=== PATIENT | female | born 1940 | race Caucasian/White ===

== ENCOUNTER 2017-02-15 23:41 | Emergency (ER) | payer MEDICARE, BC ==
[2017-02-15 23:54] VITALS: BP 205/72
--- NOTE | 2017-02-16 00:15 | EDM.PDOC ---
ED HISTORY OF PRESENT ILLNESS - General Chief Complaint: Chest Pain Stated Complaint: CHEST PAIN Time Seen by Provider: 02/16/17 00:05 - History of Present Illness INITIAL COMMENTS - FREE TEXT/NARRATIVE: 76-year-old female presents emergency room with chest pain. The patient has been having on-and-off chest pain for the last week or so it was worse this morning and again this evening. When she has these episodes it is brief only last for a few seconds and then vanishes it can be brought on by deep breathing. Patient cannot recall any position changes they tend to make it worse. However, patient states that when she's walking she's more likely to have these twinges of pain Patient has no history of coronary artery disease her last stress test was several years ago reported as normal. Patient has not have any pain at this time. She denies any problems with heartburn or reflux. No breathing difficulties or shortness of breath. Patient is a diabetic is treated for hypertension hyperlipidemia and takes a baby aspirin daily. - Related Data Allergies/ADRs: Allergies Allergy/AdvReac Type Severity Reaction Status Date / Time atorvastatin calcium Allergy Nausea Verified 02/15/17 23:50 [From Lipitor] cephalexin monohydrate Allergy Rash Verified 02/15/17 23:50 [From Keflex] erythromycin base Allergy Rash Verified 02/15/17 23:50 [Erythromycin Base] nitrofurantoin Allergy Rash Verified 02/15/17 23:50 [From Furadantin] oxytetracycline Allergy Rash Verified 02/15/17 23:50 [From Terramycin] oxytetracycline HCl Allergy Rash Verified 02/15/17 23:50 [From Terramycin] Penicillins Allergy Rash Verified 02/15/17 23:50 valdecoxib [From Bextra] Allergy Rash Verified 02/15/17 23:50 tricofuron supp Allergy Rash Uncoded 02/15/17 23:50 Home Meds: Home Meds Aspirin [Adult Low Dose Aspirin EC] 81 mg PO DAILY 03/11/14 [History] Co Q 10. 1 tab PO DAILY 03/11/14 [History] Hydrochlorothiazide 25 mg PO DAILY 03/11/14 [History] Levothyroxine Sodium [Synthroid] 125 mcg PO SUTUWETHFRSA 03/11/14 [History] Lisinopril 15 mg PO DAILY 03/11/14 [History] Lutein/Minerals/Vit A,C & E [Ocuvite] 1 tab PO DAILY 03/11/14 [History] Simvastatin [Zocor] 20 mg PO DAILY 03/11/14 [History] glipiZIDE [Glipizide Xl] 10 mg PO DAILY 03/11/14 [History] Levothyroxine [Levothroid] 137 mcg PO MO@0600 02/15/17 [History] Meloxicam 15 mg PO DAILY 02/15/17 [History] Past Medical History HEENT History: Reports: Epistaxis, Impaired vision Other HEENT History: Wears glasses Cardiovascular History: Reports: High cholesterol, Hypertension Respiratory History: Reports: Sleep apnea Other Respiratory History: CPAP at [facility] [employer]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 History: Reports: Neurological History: Reports: Concussion Endocrine/Metabolic History: Reports: Diabetes, type II, Hypothyroidism Dermatologic History: Reports: Melanoma - Past Surgical History HEENT Surgical History: Reports: Cataract surgery GI Surgical History: Reports: Appendectomy, Cholecystectomy, Hernia repair/other Female Surgical History: Reports: Hysterectomy, Salpingo-oophorectomy Social & Family History - Tobacco Use Smoking Status *Q: Never Smoker Second Hand Smoke Exposure: No - Alcohol Use Days Per Week of Alcohol Use: 0 - Recreational Drug Use Recreational Drug Use: No ED ROS GENERAL - Review of Systems Review Of Systems: See Below Constitutional: Reports: no symptoms HEENT: Reports: No symptoms Respiratory: Reports: No Symptoms Cardiovascular: Reports: Chest pain. Denies: Dyspnea on exertion, Palpitations GI/Abdominal: Reports: No symptoms : Reports: no symptoms Neurological: Reports: No Symptoms ED EXAM, GENERAL - Physical Exam Exam: See Below Exam Limited By: No limitations General Appearance: alert, no apparent distress Head: atraumatic, normocephalic Neck: normal inspection, supple, non-tender, full range of motion. No: lymphadenopathy (R) Respiratory/Chest: no respiratory distress, lungs clear, normal breath sounds, other (Patient of the sternum causes some discomfort she is unsure if this is the type of pain that brought her in.) Cardiovascular: regular rate, rhythm, no edema, no murmur GI/Abdominal: normal bowel sounds, soft, non tender, no organomegaly, no distention, no abnormal bruit, no mass Back Exam: normal inspection. No: CVA tenderness (L), CVA tenderness (R) Neurological: alert, oriented, normal cognition Psychiatric: normal affect, normal mood EKG INTERPRETATION EKG Date: 02/15/17 [place]: normal P-wave: present QRS: normal ST-T: other (Nonspecific nondiagnostic ST changes) QT: normal Comparison: no change EKG Interpretation Comments: Borderline EKG nondiagnostic Course - Vital Signs Last Recorded V/S: Last Vital Signs Temp 36.5 C 02/15/17 23:52 Pulse 76 02/15/17 23:52 Resp 18 02/15/17 23:52 BP 205/72 H 02/15/17 23:52 Pulse Ox 98 02/15/17 23:52 - Orders/Labs/Meds Orders: Active Orders 24 hr Category Date Time Status Chest 1V Frontal [CR] Stat Exams 02/16/17 00:21 Taken Labs: Laboratory Tests 02/15/17 02/15/17 02/15/17 Range/Units 23:59 23:59 23:59 WBC 8.27 (3.98-10.04) K/mm3 RBC 3.89 L (3.98-5.22) M/mm3 Hgb 11.2 (11.2-15.7) gm/L Hct 33.9 L (34.1-44.9) % MCV 87.1 (79.4-94.8) fl MCH 28.8 (25.6-32.2) pg MCHC 33.0 (32.2-35.5) g/dl RDW Std Deviation 41.3 (36.4-46.3) fL Plt Count 354 (182-369) K/mm3 MPV 9.3 L (9.4-12.3) fl Neutrophils % (Manual) 54 (40-60) % Band Neutrophils % 0 (0-10) % Lymphocytes % (Manual) 40 (20-40) % Atypical Lymphs % 0 % Monocytes % (Manual) 3 (2-10) % Eosinophils % (Manual) 1 (0.7-5.8) % Basophils % (Manual) 2 H (0.1-1.2) Platelet Estimate Adequate Plt Morphology Comment Normal RBC Morph Comment Normal PT 10.0 (8.0-13.0) SECONDS INR 0.92 APTT 28 (22-36) SECONDS Sodium 137 (136-145) mEq/L Potassium 4.0 (3.5-5.1) mEq/L Chloride 104 (98-107) mEq/L Carbon Dioxide 25 (21-32) mEq/L Anion Gap 12.0 (5-15) BUN 27 H (7-18) mg/dL Creatinine 1.2 H (0.55-1.02) mg/dL Est Cr Clr Drug Dosing 31.96 mL/min Estimated GFR (MDRD) 43 (>60) mL/min BUN/Creatinine Ratio 22.5 H (14-18) Glucose 287 H (83-115) mg/dL Calcium 9.0 (8.5-10.1) mg/dL Total Bilirubin 0.3 (0.2-1.0) mg/dL AST 36 (15-37) U/L ALT 64 H (14-59) U/L Alkaline Phosphatase 176 H (46-116) U/L Troponin I < 0.017 (0.00-0.056) ng/mL Total Protein 6.9 (6.4-8.2) g/dl Albumin 3.4 (3.4-5.0) g/dl Globulin 3.5 gm/dL Albumin/Globulin Ratio 1.0 (1-2) Meds: Medications Discontinued Medications Generic Name Dose Route Start Last Admin Trade Name Freq PRN Reason Stop Dose Admin Aspirin 324 mg 02/16/17 00:22 02/16/17 00:31 Aspirin PO 02/16/17 00:23 324 mg ONETIME ONE Administration - Re-Assessments/Exams Free Text/Narrative Re-Assessment/Exam: 02/16/17 00:41 Patient evaluated for what sounds like atypical chest pain. Old records reviewed she had a stress test done 3 years ago the stress test was normal the Cardiolite portion was normal. 02/16/17 01:53 She has done well in the emergency room laboratory evaluation is nondiagnostic her troponin is negative of note is she has a mild anemia with a hemoglobin of 11.2 hematocrit 33.9 and she appears somewhat prerenal with BUN of 27 creatinine 1.2 ALT is minimally elevated at 64, alkaline phosphatase elevated at 176 chest x-ray shows a borderline cardiomegaly no acute cardiopulmonary changes Discussed the findings in the lab abnormalities with the patient recommended giving up caffeinated beverages perhaps increasing her fluid intake take might help with her renal function the patient was recently started on meloxicam she is not sure if this is actually helping her. Stopping this could help especially were doesn't seem to be helping she has been on for a couple months with no demonstratable benefit. As far as her chest pain goes this is atypical chest pain. Is aggravated by deep breathing. Blood the patient followup with her regular physician to discuss the lab abnormalities and the possible need for a repeat stress Cardiolite. Departure - Departure Time of Disposition: 01:57 Disposition: Home, Self-Care 01 Clinical Impression: Atypical chest pain Forms: ED Department Discharge Additional Instructions: Return to the emergency room with any questions or problems. Followup with your regular physician this next week discuss lab abnormalities and the possible need for a heart stress test. - My Orders Last 24 Hours: My Active Orders 02/16/17 00:21 Chest 1V Frontal [CR] Stat - Assessment/Plan Last 24 Hours: My Active Orders 02/16/17 00:21 Chest 1V Frontal [CR] Stat
[2017-02-16] MEDS ORDERED: Aspirin 81 MG Tab.Chew PO ONE (00:22)
--- NOTE | 2017-02-17 09:26 | CR ---
Chest: Portable view of the chest was obtained. Comparison: Previous chest x-ray of 03/11/14. Heart size and mediastinum are normal. Lungs are clear. Minimal scoliosis is noted within the spine. Impression: 1. Nothing acute is seen on portable chest x-ray. Diagnostic code #1
== END 2017-02-16 02:10 | disposition home or self-care (01) ==
LOC: JD.ED 23:41
DX: R07.89 Other chest pain (principal); E78.00 Pure hypercholesterolemia, unspecified; I10 Essential (primary) hypertension; E11.9 Type 2 diabetes mellitus without complications; E03.9 Hypothyroidism, unspecified; Z88.8 Allergy status to other drugs, medicaments and biological substances; Z88.0 Allergy status to penicillin; Z79.82 Long term (current) use of aspirin; Z79.899 Other long term (current) drug therapy; Z90.710 Acquired absence of both cervix and uterus
CPT/HCPCS: 36415; 71010; 80053; 84484; 85025; 85610; 85730; 93005; 99285; A9270

== ENCOUNTER 2018-01-13 10:34 | Inpatient (IN) | payer MEDICARE, BC ==
[~2018-01-13 10:34] MED LIST: Bisacodyl 5 MG Tab PO PRN; Lactated Ringers 1,000 ML IV SCH; Lidocaine 1%/Sod Bicarbonate in NS 8.4% 1 ML Syringe IDERM PRN; Magnesium Hydroxide 400 MG/5 ML Susp 30 ML Cup PO PRN; Morphine 2 MG/ML Syringe IVPUSH PRN; Naloxone 0.4 MG/ML SDV IVPUSH PRN; Ondansetron 4 MG/2 ML SDV IVPUSH PRN; Sennosides 8.6 MG Tab PO PRN; Sodium Chloride 0.9% 10 ML Syringe FLUSH PRN
--- NOTE | 2018-01-13 11:22 | PCM.PREANE ---
Preanesthetic Assessment - Anesthesia/Transfusion/Family Hx Anesthesia History: Prior Anesthesia Without Reaction Family History of Anesthesia Reaction: No Transfusion History: No Prior Transfusion(s) - Review of Systems General: No Symptoms Pulmonary: No Symptoms Cardiovascular: Dyspnea on Exertion Gastrointestinal: No Symptoms Neurological: Numbness (toes) Other: Reports: Diabetes (gluco check this am 124 @0630), Thyroid Problems ( hypothyroid) - Physical Assessment NPO Status Date: 01/12/18 NPO Status Time: 00:00 Pulse: 65 O2 Sat by Pulse Oximetry: 98 Respiratory Rate: 16 Blood Pressure: 155/64 Temperature: 36.4 C Height: 1.6 m Weight: 81.193 kg ASA Class: 3 Mental Status: Alert & Oriented x3 Airway Class: Mallampati = 2 Dentition: Reports: Partial, [place](s) Thyro-Mental Finger Breadths: 3 Mouth Opening Finger Breadths: 2 ROM/Head Extension: Full Lungs: Clear to Auscultation, Normal Respiratory Effort Cardiovascular: Regular Rate, Regular Rhythm, No Murmurs - Lab Values: Laboratory Last Values MRSA (PCR) Negative 12/24/17 11:48 - Imaging/EKG Impressions: on chart SR 62 - Allergies Allergies/Adverse Reactions: Allergies Allergy/AdvReac Type Severity Reaction Status Date / Time adhesive Allergy Rash Verified 01/10/18 14:55 atorvastatin calcium Allergy Body Aches Verified 01/10/18 14:55 [From Lipitor] cephalexin monohydrate Allergy Rash Verified 02/15/17 23:50 [From Keflex] erythromycin base Allergy Rash Verified 02/15/17 23:50 [Erythromycin Base] furazolidone Allergy Rash Verified 01/10/18 14:55 nitrofurantoin Allergy Rash Verified 02/15/17 23:50 [From Furadantin] oxytetracycline Allergy Rash Verified 02/15/17 23:50 [From Terramycin] oxytetracycline HCl Allergy Rash Verified 02/15/17 23:50 [From Terramycin] Penicillins Allergy Rash Verified 02/15/17 23:50 valdecoxib [From Bextra] Allergy Rash Verified 02/15/17 23:50 tricofuron supp Allergy Rash Uncoded 02/15/17 23:50 - Blood Blood Available: Yes Product(s) Available: PRBC - Anesthesia Plan Pre-Op Medication Ordered: None - Acknowledgements Anesthesia Type Planned: Spinal Pt an Appropriate Candidate for the Planned Anesthesia: Yes Alternatives and Risks of Anesthesia Discussed w Pt/Guardian: Yes Pt/Guardian Understands and Agrees with Anesthesia Plan: Yes PreAnesthesia Questionnaire HEENT History: Reports: Impaired Vision Other HEENT History: Wears glasses Cardiovascular History: Reports: CAD, High Cholesterol, Hypertension, Other ( See Below) Other Cardiovascular History: Mitral and aortic valve insufficiency, edema Respiratory History: Reports: Sleep Apnea Other Respiratory History: CPAP at [facility] Gastrointestinal History: Reports: Colon Polyp, Diverticulosis, Gastritis, GERD Genitourinary History: Reports: None [employer]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: Musculoskeletal History: Reports: Osteoarthritis, Other (See Below) Other Musculoskeletal History: Right hip pain, DJD, back ache, right hip trochanteric bursitis, right patella chondromalacia Neurological History: Reports: None Psychiatric History: Reports: None Endocrine/Metabolic History: Reports: Diabetes, Type II, Hypothyroidism Hematologic History: Reports: None Immunologic History: Reports: None Oncologic (Cancer) History: Reports: Basal Cell Carcinoma Dermatologic History: Reports: Other (See Below) Other Dermatologic History: Actinic keratosis - Infectious Disease History Infectious Disease History: Reports: None - Past Surgical History HEENT Surgical History: Reports: Cataract Surgery Cardiovascular Surgical History: Reports: None Respiratory Surgical History: Reports: None GI Surgical History: Reports: Appendectomy, Cholecystectomy, EGD, Hernia, Inguinal, Other (See Below) Other GI Surgeries/Procedures: hemorrhoid surgery Female Surgical History: Reports: Cystoscopy, Other (See Below) Other Female Surgeries/Procedures: bladder repair Endocrine Surgical History: Reports: None Neurological Surgical History: Reports: None Oncologic Surgical History: Reports: None Dermatological Surgical History: Reports: None - SUBSTANCE USE Smoking Status *Q: Never Smoker Tobacco Use Within Last Twelve Months: No Second Hand Smoke Exposure: No Days Per Week of Alcohol Use: 0 Number of Drinks Per Day: 0 Total Drinks Per Week: 0 Recreational Drug Use History: No - HOME MEDS Home Medications: Home Meds Aspirin [Adult Low Dose Aspirin EC] 81 mg PO DAILY 03/11/14 [History] Co Q 10. 1 tab PO DAILY 03/11/14 [History] Hydrochlorothiazide 25 mg PO DAILY 03/11/14 [History] Levothyroxine Sodium [Synthroid] 125 mcg PO SUTUWETHFRSA 04/24/14 [History] Lisinopril 15 mg PO DAILY 03/11/14 [History] Lutein/Minerals/Vit A,C & E [Ocuvite] 1 tab PO DAILY 03/11/14 [History] Simvastatin [Zocor] 20 mg PO DAILY 03/11/14 [History] glipiZIDE [Glipizide Xl] 10 mg PO DAILY 03/11/14 [History] Levothyroxine [Levothroid] 137 mcg PO MO@0600 02/15/17 [History] Meloxicam 15 mg PO DAILY 02/15/17 [History] - CURRENT (IN HOUSE) MEDS Current Meds: Current Medications Aspirin (Ecotrin) 325 mg PO BID [facility] Bisacodyl (Dulcolax) 5 mg PO DAILY PRN PRN Reason: Constipation Morphine Sulfate 8 mg/Epinephrine HCl 0.3 mg/Ketorolac Tromethamine 30 mg/ Sodium Chloride 27.9 ml 0 mg .XX ONETIME ONE Stop: 01/13/18 12:31 Docusate Sodium (Colace) 100 mg PO BID [facility] Famotidine (Pepcid) 20 mg PO Q12H [facility] Lactated Ringer's (Ringers, Lactated) 1,000 mls @ 125 mls/hr IV ASDIRECTED [facility] Stop: 01/13/18 23:00 Clindamycin Phosphate 900 mg/ (Sodium Chloride) 106 mls @ 100 mls/hr IV Q6H [facility] Stop: 01/14/18 07:16 Lidocaine/Sodium Bicarbonate (Buffered Lidocaine 1% In Ns 8.4%) 0.25 ml IDERM ONETIME PRN PRN Reason: Prior to IV Start Stop: 01/13/18 20:00 Magnesium Hydroxide (Milk Of Magnesia) 30 ml PO BID PRN PRN Reason: Constipation Morphine Sulfate (Morphine) 2 mg IVPUSH Q2H PRN PRN Reason: Breakthrough Pain Naloxone HCl (Narcan) 0.1 mg IVPUSH Q5M PRN PRN Reason: Oversedation Ondansetron HCl (Zofran) 4 mg IVPUSH Q6H PRN PRN Reason: Nausea/Vomiting Oxycodone/Acetaminophen (Percocet 325-5 Mg) 1 - 2 tab PO Q4H PRN PRN Reason: Pain Rivaroxaban (Xarelto) 10 mg PO DAILY [facility] Senna (Senna) 8.6 mg PO BID PRN PRN Reason: Constipation Sodium Chloride (Saline Flush) 10 ml FLUSH ASDIRECTED PRN PRN Reason: Keep Vein Open
[2018-01-13] MEDS ORDERED: Morphine PF 1 MG/ML Amp ONE (11:27)
[2018-01-13] MEDS ORDERED: Lidocaine 1% 4 ML ONE (11:41)
[2018-01-13] MEDS ORDERED: Ondansetron 4 MG/2 ML SDV ONE (11:41)
[2018-01-13] MEDS ORDERED: fentaNYL 100 MCG/2 ML SDV ONE (11:41)
[2018-01-13] MEDS ORDERED: Propofol 200 MG/20 ML SDV ONE ×3 (11:41→13:07)
[2018-01-13] MEDS ORDERED: Clindamycin Phosphate 900 MG in Sodium Chloride 0.9% 100 ML IV ONE (12:00)
[2018-01-13] MEDS: Bupivacaine 0.25% 30 ML SDV ONE ×2 (12:45→13:24)
[2018-01-13] MEDS: Clindamycin Phosphate 900 MG/6 ML AdvVial ONE ×2 (12:45→13:20)
[2018-01-13] MEDS: Iodine/Sodium Iodide 2% Tincture 30 ML Bottle ONE ×2 (12:46→13:15)
[2018-01-13] MEDS: Vancomycin 1 GM SDV ONE ×2 (12:47→13:25)
[2018-01-13] MEDS: Morphine 8 MG, EPINEPHrine 0.3 MG, Ketorolac 30 MG, Sodium Chloride 0.9% 27.9 ML ONE ×8 (12:47→13:23)
[2018-01-13] MEDS ORDERED: Ketorolac 30 MG/ML SDV ONE (13:57)
[2018-01-13] MEDS ORDERED: fentaNYL 100 MCG/2 ML SDV IVPUSH PRN (14:01)
[2018-01-13] MEDS ORDERED: diphenhydrAMINE 50 MG/ML SDV IVPUSH PRN (14:01)
--- NOTE | 2018-01-13 14:03 | PCM.POSTAN ---
POST ANESTHESIA ASSESSMENT - MENTAL STATUS Mental Status: Alert, Oriented - VITAL SIGNS Pulse Rate: 82 SaO2: 94 Resp Rate: 15 Blood Pressure: 142/62 Temperature: 36.7 C - RESPIRATORY Respiratory Status: Respiratory Rate WNL, Airway Patent, O2 Saturation Stable - CARDIOVASCULAR CV Status: Pulse Rate WNL, Blood Pressure Stable - GASTROINTESTINAL GI Status: No Symptoms - PAIN Pain Score: 0 - POST OP HYDRATION Hydration Status: Adequate & Stable - OBSERVATIONS Free Text/Narrative:: no anesthesia complications noted
--- NOTE | 2018-01-13 14:48 | CR ---
Pelvis and right hip: AP view of the pelvis was obtained as well as lateral view of the right hip. Comparison: No prior pelvis or hip exam. Right hip prosthesis is seen. Components are aligned. Small amount of soft tissue air is noted. Mild joint space narrowing is seen within the left hip. Osteophytes are seen within the lower lumbar spine. Bony structures are osteopenic. Nothing acute is seen. Impression: 1. Satisfactory radiographic appearance of recently placed right hip prosthesis. 2. Osteopenia and other degenerative change as noted above. Diagnostic code #2
[2018-01-13] MEDS ORDERED: metFORMIN 500 MG Tab PO SCH (15:15)
[2018-01-13] MEDS: Aspirin 325 MG Tab.EC PO SCH ×2 (16:07→20:56)
[2018-01-13] MEDS: Docusate Sodium 100 MG Cap PO SCH ×2 (16:39→20:56)
[2018-01-13] MEDS: Famotidine 20 MG Tab PO SCH ×2 (17:03→18:18)
[2018-01-13] MEDS ORDERED: 50% Dextrose in Water 50 ML Syringe IVPUSH PRN (17:05)
--- NOTE | 2018-01-13 17:07 | PCM.CONS ---
H&P History of Present Illness - General Date of Service: 01/13/18 Admit Problem/Dx: Admission Diagnosis/Problem Admission Diagnosis/Problem Osteoarthritis of hip Source of Information: Patient, Provider, RN, RN Notes Reviewed, Other ( surgical notes) - History of Present Illness Initial Comments - Free Text/Narative: Samaria Arcos is a 77 yo female patient of Dr. Avery who is post-operative day 0 of right ZHENG. Hospital medicine was consulted for post-operative medical care. At this time she is resting comfortably in bed. Pain is completely absent. She denies any chest pain, shortness of breath, or palpitations. She had some nausea and vomiting right away and had some emesis just prior to my exam however she reports the nausea resolved after vomiting. She carries a history of : Impaired vision, CAD, HLD, HTN, Mitral and aortic valve insufficiency, edema, Sleep apnea with CPAP use at night, diverticulosis, gastritis, GERD, OA, DJD, Type II DM, hypothyroidism. She was never a smoker. She is a full code. Her primary care provider is Dr. Henry at [facility]. Right Hip Pain Score (Numeric/FACES): 0 - Related Data Allergies/Adverse Reactions: Allergies Allergy/AdvReac Type Severity Reaction Status Date / Time adhesive Allergy Rash Verified 01/13/18 11:35 atorvastatin calcium Allergy Body Aches Verified 01/13/18 11:35 [From Lipitor] cephalexin monohydrate Allergy Rash Verified 01/13/18 11:35 [From Keflex] erythromycin base Allergy Rash Verified 01/13/18 11:35 [Erythromycin Base] furazolidone Allergy Rash Verified 01/13/18 11:35 nitrofurantoin Allergy Rash Verified 01/13/18 11:35 [From Furadantin] oxytetracycline Allergy Rash Verified 01/13/18 11:35 [From Terramycin] oxytetracycline HCl Allergy Rash Verified 01/13/18 11:35 [From Terramycin] Penicillins Allergy Rash Verified 01/13/18 11:35 valdecoxib [From Bextra] Allergy Rash Verified 01/13/18 11:35 tricofuron supp Allergy Rash Uncoded 01/13/18 11:35 Home Medications: Home Meds Aspirin [Adult Low Dose Aspirin EC] 81 mg PO DAILY 03/11/14 [History] Co Q 10. 1 tab PO DAILY 03/11/14 [History] Hydrochlorothiazide 25 mg PO DAILY 03/11/14 [History] Levothyroxine Sodium [Synthroid] 112 mcg PO DAILY 03/11/14 [History] Lisinopril 15 mg PO DAILY 03/11/14 [History] Lutein/Minerals/Vit A,C & E [Ocuvite] 1 tab PO DAILY 03/11/14 [History] Simvastatin [Zocor] 20 mg PO DAILY 03/11/14 [History] glipiZIDE [Glipizide Xl] 5 mg PO DAILY 03/11/14 [History] Meloxicam 15 mg PO DAILY 02/15/17 [History] Cholecalciferol (Vitamin D3) [Vitamin D3] 5,000 units PO DAILY 01/13/18 [History ] Isosorbide Mononitrate [Imdur] 30 mg PO DAILY 01/13/18 [History] Lutein/Minerals/Vit A,C & E [Ocuvite] 1 tab PO DAILY 01/13/18 [History] Terbinafine HCl [Lamisil] 250 mg PO DAILY 01/13/18 [History] metFORMIN [Glucophage] 1,000 mg PO DAILY 01/13/18 [History] metFORMIN [Glucophage] 500 mg PO ASDIRECTED 01/13/18 [History] Past Medical History HEENT History: Reports: Impaired Vision Other HEENT History: Wears glasses Cardiovascular History: Reports: CAD, High Cholesterol, Hypertension, Other ( See Below) Other Cardiovascular History: Mitral and aortic valve insufficiency, edema Respiratory History: Reports: Sleep Apnea Other Respiratory History: CPAP at [facility] Gastrointestinal History: Reports: Colon Polyp, Diverticulosis, Gastritis, GERD , Hiatal Hernia Genitourinary History: Reports: None [employer]PRESENTATIVE History: Reports: Musculoskeletal History: Reports: Osteoarthritis, Other (See Below) Other Musculoskeletal History: Right hip pain, DJD, back ache, right hip trochanteric bursitis, right patella chondromalacia Neurological History: Reports: None Psychiatric History: Reports: None Endocrine/Metabolic History: Reports: Diabetes, Type II, Hypothyroidism Hematologic History: Reports: None Immunologic History: Reports: None Oncologic (Cancer) History: Reports: Basal Cell Carcinoma, Other (See Below) Other Oncologic History: skin cancer that was removed Dermatologic History: Reports: Melanoma, Other (See Below) Other Dermatologic History: Actinic keratosis - Infectious Disease History Infectious Disease History: Reports: Chicken Pox, Measles, Mumps - Past Surgical History HEENT Surgical History: Reports: Cataract Surgery Cardiovascular Surgical History: Reports: None Respiratory Surgical History: Reports: None GI Surgical History: Reports: Appendectomy, Cholecystectomy, Colonoscopy, EGD, Hernia, Inguinal, Other (See Below) Other GI Surgeries/Procedures: hemorrhoid surgery Female Surgical History: Reports: Cystoscopy, Other (See Below) Other Female Surgeries/Procedures: bladder repair Endocrine Surgical History: Reports: None Neurological Surgical History: Reports: None Oncologic Surgical History: Reports: None Dermatological Surgical History: Reports: None Social & Family History - Family History Family Medical History: Noncontributory - Tobacco Use Smoking Status *Q: Never Smoker Second Hand Smoke Exposure: No - Caffeine Use Caffeine Use: Reports: Tea - Alcohol Use Days Per Week of Alcohol Use: 0 Number of Drinks Per Day: 0 Total Drinks Per Week: 0 - Recreational Drug Use Recreational Drug Use: No Drug Use in Last 12 Months: No H&P Review of Systems - Review of Systems: Review Of Systems: See Below General: Reports: No Symptoms HEENT: Reports: No Symptoms Pulmonary: Reports: No Symptoms Cardiovascular: Reports: No Symptoms Gastrointestinal: Reports: Nausea, Vomiting. Denies: Abdominal Pain, Constipation, Diarrhea Genitourinary: Reports: No Symptoms Musculoskeletal: Reports: Joint Pain (right hip) Skin: Reports: No Symptoms Psychiatric: Reports: No Symptoms Neurological: Reports: No Symptoms Hematologic/Lymphatic: Reports: No Symptoms Immunologic: Reports: No Symptoms Exam - Exam Exam: See Below - Vital Signs Vital Signs: Last Vital Signs Temp 96.4 F 01/13/18 16:44 Pulse 81 01/13/18 16:44 Resp 18 01/13/18 16:44 BP 132/70 01/13/18 16:44 Pulse Ox 97 01/13/18 16:44 Weight: 179 lb - Exam Quality Assessment: Supplemental Oxygen, Urinary Catheter, DVT Prophylaxis General: Alert, Oriented, Cooperative. No: Mild Distress HEENT: PERRLA, Hearing Intact, Mucosa Moist & [place], Nares Patent, Normal Nasal Septum, Posterior Pharynx Clear, Conjunctiva Clear, EOMI, EACs Clear, TMs Clear Neck: Supple, Trachea Midline. No: JVD Lungs: Clear to Auscultation, Normal Respiratory Effort Cardiovascular: Regular Rate, Regular Rhythm GI/Abdominal Exam: Normal Bowel Sounds, Soft, Non-Tender, No Organomegaly, No Distention, No Abnormal Bruit, No Mass, Pelvis Stable (Female) Exam: Deferred Rectal (Female) Exam: Deferred Back Exam: Normal Inspection, Full Range of Motion Extremities: No Pedal Edema, Normal Capillary Refill, Leg Pain, Limited Range of Motion, Other (SAVANA bandage in place on right leg. Bandage is dry and intact. Cooling pack in place ) Peripheral Pulses: 2+: Radial (L), Radial (R), Posterior Tibial (L), Posterior Tibial (R), Dorsalis Pedis (L), Dorsalis Pedis (R) Skin: Warm, Dry, Intact Neurological: Cranial Nerves Intact (Grossly) Neuro Extensive - Mental Status: Alert, Oriented x3, Normal Mood/Affect, Normal Cognition, Memory Intact Psychiatric: Alert, Normal Affect, Normal Mood - Patient Data Lab Results Last 24 hrs: Laboratory Results - last 24 hr 01/13/18 Range/Units 11:03 Blood Type O NEGATIVE Gel Antibody Screen Negative Consult PN Assessment/Plan POD#: 0 Procedures: Procedures ASSAY OF CK (CPK) (03/11/14) ASSAY OF MAGNESIUM (03/11/14) ASSAY OF TROPONIN QUANT (02/15/17) ASSAY THYROID STIM HORMONE (03/11/14) C-REACTIVE PROTEIN (03/11/14) CARDIOVASCULAR STRESS TEST (03/22/14) CHEST X-RAY 1 VIEW FRONTAL (02/15/17) COMPLETE CBC W/AUTO DIFF WBC (02/15/17) COMPREHEN METABOLIC PANEL (02/15/17) CONTRST X-RAY UPPR GI TRACT (03/30/14) CREATINE MB FRACTION (03/11/14) DRAIN/INJ JOINT/BURSA W/O US (04/30/17) ELECTROCARDIOGRAM TRACING (02/15/17) EMERGENCY DEPT VISIT (02/15/17) GLUCOSE BLOOD TEST (03/11/14) GLYCOSYLATED HEMOGLOBIN TEST (03/11/14) HT MUSCLE IMAGE SPECT MULT (03/22/14) LIPID PANEL (03/11/14) MEASURE BLOOD OXYGEN LEVEL (03/11/14) PROTHROMBIN TIME (02/15/17) ROUTINE VENIPUNCTURE (02/15/17) THER/PROPH/DIAG INJ SC/IM (03/11/14) THROMBOPLASTIN TIME PARTIAL (02/15/17) (1) S/P total hip arthroplasty SNOMED Code(s): 008021390840 Code(s): Z96.649 - PRESENCE OF UNSPECIFIED ARTIFICIAL HIP JOINT Priority: High Current Visit: Yes Qualifiers: Laterality: right Qualified Code(s): Z96.641 - Presence of right artificial hip joint (2) Osteoarthritis SNOMED Code(s): 835983369 Code(s): M19.90 - UNSPECIFIED OSTEOARTHRITIS, UNSPECIFIED SITE Priority: High Current Visit: Yes Qualifiers: Osteoarthritis location: hip Osteoarthritis type: primary Laterality: right Qualified Code(s): M16.11 - Unilateral primary osteoarthritis, right hip (3) CAD (coronary artery disease) SNOMED Code(s): 57014914 Code(s): I25.10 - ATHSCL HEART DISEASE OF [place] CORONARY ARTERY W/O ANG PCTRS Priority: Low Current Visit: No Qualifiers: Coronary Disease-Associated Artery/Lesion type: unspecified vessel or lesion type [place] vs. transplanted heart: unspecified whether [place] or transplanted heart Associated angina: angina presence unspecified Qualified Code(s): I25.10 - Atherosclerotic heart disease of [place] coronary artery without angina pectoris (4) HLD (hyperlipidemia) SNOMED Code(s): 39516999 Code(s): E78.5 - HYPERLIPIDEMIA, UNSPECIFIED Priority: Low Current Visit : No Qualifiers: Hyperlipidemia type: unspecified Qualified Code(s): E78.5 - Hyperlipidemia , unspecified (5) HTN (hypertension) SNOMED Code(s): 75293776 Code(s): I10 - ESSENTIAL (PRIMARY) HYPERTENSION Priority: Low Current Visit: No Qualifiers: Hypertension type: unspecified Qualified Code(s): I10 - Essential (primary ) hypertension (6) Mitral valve insufficiency SNOMED Code(s): 02538505 Code(s): I34.0 - NONRHEUMATIC MITRAL (VALVE) INSUFFICIENCY Priority: Low Current Visit: No Qualifiers: Cardiac valve disease etiology: etiology unspecified Qualified Code(s): I34.0 - Nonrheumatic mitral (valve) insufficiency (7) Aortic valve insufficiency SNOMED Code(s): 27043473 Code(s): I35.1 - NONRHEUMATIC AORTIC (VALVE) INSUFFICIENCY Priority: Low Current Visit: No Qualifiers: Cardiac valve disease etiology: etiology unspecified Qualified Code(s): I35.1 - Nonrheumatic aortic (valve) insufficiency (8) Sleep apnea SNOMED Code(s): 72408905 Code(s): G47.30 - SLEEP APNEA, UNSPECIFIED Priority: Low Current Visit: Yes Qualifiers: Sleep apnea type: unspecified type Qualified Code(s): G47.30 - Sleep apnea , unspecified (9) Diverticulosis SNOMED Code(s): 65511238 Code(s): K57.90 - DVRTCLOS OF INTEST, PART UNSP, W/O PERF OR ABSCESS W/O BLEED Priority: Low Current Visit: No Qualifiers: Diverticulosis site: unspecified location Diverticulosis bleeding: diverticulosis without bleeding Qualified Code(s): K57.90 - Diverticulosis of intestine, part unspecified, without perforation or abscess without bleeding (10) GERD (gastroesophageal reflux disease) SNOMED Code(s): 150290361 Code(s): K21.9 - GASTRO-ESOPHAGEAL REFLUX DISEASE WITHOUT ESOPHAGITIS Priority: Low Current Visit: No Qualifiers: Esophagitis presence: esophagitis presence not specified Qualified Code(s) : K21.9 - Gastro-esophageal reflux disease without esophagitis (11) Type II diabetes mellitus SNOMED Code(s): 47698106 Code(s): E11.9 - TYPE 2 DIABETES MELLITUS WITHOUT COMPLICATIONS Priority: Medium Current Visit: Yes Qualifiers: Diabetes mellitus complication status: without complication 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: without 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 use Qualified Code(s): E11.9 - Type 2 diabetes mellitus without complications (12) Hypothyroidism SNOMED Code(s): 68144455 Code(s): E03.9 - HYPOTHYROIDISM, UNSPECIFIED Priority: Low Current Visit : No Qualifiers: Hypothyroidism type: unspecified Qualified Code(s): E03.9 - Hypothyroidism , unspecified Problem List Initiated/Reviewed/Updated: Yes My Orders Last 24 Hours: My Active Orders 01/13/18 17:05 Blood Glucose Check, Bedside [RC] QIDACANDBED Dextrose 50% in Water 50 ml IVPUSH ASDIRECTED PRN 01/13/18 22:00 Insulin Aspart [NovoLOG] See Protocol SUBCUT QIDACANDBED Plan: I/P: Acute: S/P right total ihp arthroplasty - post-operative day 0 -DVT prophylaxis and pain management per primary care team -PT/OT -IS/RT -Monitor oxygen saturation -Titrate oxygen as needed -Vital signs stable -Monitor labs -Pre-operative Hgb was 11.8 -Pre-operative A1C 6.5% -Pre-operative eGFR 53% Osteoarthritis of right hip -Pain management per primary care team Post-operative nausea and vomiting -Comes on suddenly and resolves after emesis temporarily -2 episodes so far -Zofran given, scopolamine patch ordered Chronic (home meds): Impaired vision CAD HLD HTN Mitral valve insufficiency Aortic valve insufficiency Sleep apnea on CPAP Diverticulosis Gastritis GERD Type II DM Hypothyroidism Plan: CM for discharge planning GI prophylaxis Home medications as indicated Other orders as listed above Routine AM labs She is a full code. Her PCP is Dr. Henry at [facility] Thank you for allowing us to participate in the care of this patient!! Requesting Provider: Dr. Avery Date Consult Requested: 01/13/18 Reason for Consult: Post-operative medical managment Patient History Reviewed: Yes Admission H&P Reviewed: Yes Time Spent (in minutes): 25
[2018-01-13] MEDS ORDERED: Scopolamine 1 MG Transdermal Patch TRDERM SCH (17:30)
[2018-01-13] MEDS: Clindamycin Phosphate 900 MG in Sodium Chloride 0.9% 100 ML IV SCH ×2 (17:41→17:56)
[2018-01-13] MEDS ORDERED: Metoclopramide 10 MG/2 ML SDV IVPUSH PRN (19:35)
[2018-01-13] MEDS: Insulin Aspart 100 Units/ML 3 ML Pen SUBCUT SCH (21:08)
[2018-01-14] MEDS: Clindamycin Phosphate 900 MG in Sodium Chloride 0.9% 100 ML IV SCH ×3 (00:47→12:04)
[2018-01-14] MEDS ORDERED: Levothyroxine 112 MCG Tab PO SCH (06:00)
--- NOTE | 2018-01-14 06:24 | PCM.CONSN ---
- General Info Date of Service: 01/14/18 Admission Dx/Problem (Free Text): Admission Diagnosis/Problem Admission Diagnosis/Problem Osteoarthritis of hip Subjective Update: In to see Samaria. She is doing fairly well. She denies any concerns or complaints. Vital signs have been stable. She is resting in bed and states pain is 5/10 but controlled. No concerns from nursing or providers. She has voided. Functional Status: Reports: Pain Controlled, Tolerating Diet, Ambulating, Urinating, Incentive Spirometry. Denies: New Symptoms - Review of Systems General: Reports: No Symptoms HEENT: Reports: No Symptoms Pulmonary: Reports: No Symptoms Cardiovascular: Reports: No Symptoms Gastrointestinal: Reports: No Symptoms Genitourinary: Reports: No Symptoms Musculoskeletal: Reports: Joint Pain Skin: Reports: No Symptoms Neurological: Reports: No Symptoms Psychiatric: Reports: No Symptoms - Patient Data Vitals - Most Recent: Last Vital Signs Temp 97.2 F 01/13/18 20:05 Pulse 72 01/13/18 23:31 Resp 17 01/13/18 23:31 BP 126/50 L 01/13/18 23:31 Pulse Ox 97 01/13/18 23:31 Weight - Most Recent: 179 lb I&O - Last 24 Hours: Intake & Output 01/13/18 01/13/18 01/14/18 14:59 22:59 06:59 Intake Total 100 380 106 Output Total 250 800 Balance -150 -420 106 Lab Results Last 24 Hours: Laboratory Results - last 24 hr 01/13/18 01/13/18 01/14/18 Range/Units 11:03 20:45 06:03 POC Glucose 175 H 171 H (83-110) mg/dL Blood Type O NEGATIVE Gel Antibody Screen Negative Med Orders - Current: Current Medications Aspirin (Ecotrin) 325 mg PO BID [facility] Last Admin: 01/13/18 20:56 Dose: Not Given Aspirin (Halfprin) 81 mg PO DAILY [facility] Bisacodyl (Dulcolax) 5 mg PO DAILY PRN PRN Reason: Constipation Cholecalciferol (Vitamin D3) 5,000 units PO DAILY [facility] Dextrose/Water (Dextrose 50% In Water) 50 ml IVPUSH ASDIRECTED PRN PRN Reason: Hypoglycemia Docusate Sodium (Colace) 100 mg PO BID [facility] Last Admin: 01/13/18 20:56 Dose: Not Given Famotidine (Pepcid) 20 mg PO Q12H [facility] Last Admin: 01/13/18 18:18 Dose: Not Given Glipizide (Glucotrol Xl) 5 mg PO DAILY [facility] Hydrochlorothiazide (Hydrochlorothiazide) 25 mg PO DAILY [facility] Clindamycin Phosphate 900 mg/ (Sodium Chloride) 106 mls @ 100 mls/hr IV Q6H [facility] Stop: 01/14/18 18:46 Last Admin: 01/14/18 00:47 Dose: 100 mls/hr Insulin Aspart (Novolog) 0 unit SUBCUT QIDACANDBED [facility] PRN Reason: Protocol Last Admin: 01/13/18 21:08 Dose: 1 unit Isosorbide Mononitrate (Imdur) 30 mg PO DAILY [facility] Levothyroxine Sodium (Levothyroxine) 112 mcg PO ACBRK [facility] Lisinopril (Prinivil) 15 mg PO DAILY [facility] Magnesium Hydroxide (Milk Of Magnesia) 30 ml PO BID PRN PRN Reason: Constipation Metformin HCl (Glucophage) 1,000 mg PO DAILY [facility] Metoclopramide HCl (Reglan) 10 mg IVPUSH Q4H PRN PRN Reason: Nausea/Vomiting Morphine Sulfate (Morphine) 2 mg IVPUSH Q2H PRN PRN Reason: Breakthrough Pain Naloxone HCl (Narcan) 0.1 mg IVPUSH Q5M PRN PRN Reason: Oversedation Non-Formulary Medication (Co Q 10.) 1 tab PO DAILY [facility] Non-Formulary Medication (Terbinafine Hcl) 250 mg PO DAILY [facility] Ondansetron HCl (Zofran) 4 mg IVPUSH Q6H PRN PRN Reason: Nausea/Vomiting Last Admin: 01/13/18 17:03 Dose: 4 mg Oxycodone/Acetaminophen (Percocet 325-5 Mg) 1 - 2 tab PO Q4H PRN PRN Reason: Pain Rivaroxaban (Xarelto) 10 mg PO DAILY [facility] Scopolamine (Scopolamine) 1 each TRDERM Q72H [facility] Last Admin: 01/13/18 17:56 Dose: 1 each Senna (Senna) 8.6 mg PO BID PRN PRN Reason: Constipation Simvastatin (Zocor) 20 mg PO DAILY [facility] Sodium Chloride (Saline Flush) 10 ml FLUSH ASDIRECTED PRN PRN Reason: Keep Vein Open Discontinued Medications Bupivacaine HCl (Marcaine 0.25%) Confirm Administered Dose 30 ml .ROUTE .STK- MED ONE Stop: 01/13/18 11:20 Last Admin: 01/13/18 13:24 Dose: 30 ml Clindamycin Phosphate (Cleocin) Confirm Administered Dose 900 mg .ROUTE .STK- MED ONE Stop: 01/13/18 11:20 Last Admin: 01/13/18 13:20 Dose: 900 mg Morphine Sulfate 8 mg/Epinephrine HCl 0.3 mg/Ketorolac Tromethamine 30 mg/ Sodium Chloride 27.9 ml 0 mg .XX ONETIME ONE Stop: 01/13/18 12:31 Last Admin: 01/13/18 13:23 Dose: 38.3 mg Diphenhydramine HCl (Benadryl) 25 mg IVPUSH Q6H PRN PRN Reason: Itching Stop: 01/13/18 18:00 Fentanyl (Sublimaze) Confirm Administered Dose 100 mcg .ROUTE .STK-MED ONE Stop: 01/13/18 11:42 Fentanyl (Sublimaze) 50 mcg IVPUSH Q5M PRN PRN Reason: PAIN Stop: 01/13/18 18:00 Lactated Ringer's (Ringers, Lactated) 1,000 mls @ 125 mls/hr IV ASDIRECTED [facility] Stop: 01/13/18 23:00 Last Admin: 01/13/18 11:00 Dose: 125 mls/hr Clindamycin Phosphate 900 mg/ (Sodium Chloride) 106 mls @ 100 mls/hr IV ONETIME ONE Stop: 01/13/18 13:03 Last Admin: 01/13/18 19:31 Dose: Not Given Lidocaine HCl (Xylocaine-Mpf 1%) Confirm Administered Dose 4 mls @ as directed .ROUTE .STK-MED ONE Stop: 01/13/18 11:42 Iodine (Iodine 2% Mild Tincture) Confirm Administered Dose 30 ml .ROUTE .STK- MED ONE Stop: 01/13/18 11:20 Last Admin: 01/13/18 13:15 Dose: 18 ml Ketorolac Tromethamine (Toradol) Confirm Administered Dose 30 mg .ROUTE .STK- MED ONE Stop: 01/13/18 13:58 Lidocaine/Sodium Bicarbonate (Buffered Lidocaine 1% In Ns 8.4%) 0.25 ml IDERM ONETIME PRN PRN Reason: Prior to IV Start Stop: 01/13/18 20:00 Last Admin: 01/13/18 11:00 Dose: 0.25 ml Metformin HCl (Glucophage) 500 mg PO ASDIRECTED [facility] Morphine Sulfate (Duramorph Pf) Confirm Administered Dose 1 mg .ROUTE .STK-MED ONE Stop: 01/13/18 11:28 Ondansetron HCl (Zofran) Confirm Administered Dose 4 mg .ROUTE .STK-MED ONE Stop: 01/13/18 11:42 Propofol (Diprivan 20 Ml) Confirm Administered Dose 200 mg .ROUTE .STK-MED ONE Stop: 01/13/18 11:42 Propofol (Diprivan 20 Ml) Confirm Administered Dose 200 mg .ROUTE .STK-MED ONE Stop: 01/13/18 12:33 Propofol (Diprivan 20 Ml) Confirm Administered Dose 200 mg .ROUTE .STK-MED ONE Stop: 01/13/18 13:08 Tranexamic Acid (Cyklokapron) Confirm Administered Dose 1,000 mg .ROUTE .STK- MED ONE Stop: 01/13/18 11:20 Last Admin: 01/13/18 13:27 Dose: 1,000 mg Vancomycin HCl (Vancomycin) Confirm Administered Dose 1 gm .ROUTE .STK-MED ONE Stop: 01/13/18 11:20 Last Admin: 01/13/18 13:25 Dose: 1 gm - Exam Quality Assessment: DVT Prophylaxis General: Alert, Oriented, Cooperative, No Acute Distress HEENT: Pupils Equal, Pupils Reactive, EOMI, Mucous Membr. Moist/[place] Neck: Supple, Trachea Midline, No JVD Lungs: Clear to Auscultation, Normal Respiratory Effort Cardiovascular: Regular Rate, Regular Rhythm GI/Abdominal Exam: Normal Bowel Sounds, Soft, Non-Tender, No Organomegaly, No Distention, No Abnormal Bruit, No Mass, Pelvis Stable (Female) Exam: Deferred Back Exam: Normal Inspection, Full Range of Motion Extremities: No Pedal Edema, Normal Capillary Refill, Leg Pain, Limited Range of Motion, Other (SAVANA bandage in place on right leg. Cooling pack in place ) Peripheral Pulses: 2+: Radial (L), Radial (R), Dorsalis Pedis (L), Dorsalis Pedis (R) Skin: Warm, Dry, Intact Wound/Incisions: Dressing Dry and Intact, No Drainage Neurological: No New Focal Deficit Psy/Mental Status: Alert, Normal Affect, Normal Mood Consult PN Assessment/Plan POD#: 1 Procedures: Procedures ASSAY OF CK (CPK) (03/11/14) ASSAY OF MAGNESIUM (03/11/14) ASSAY OF TROPONIN QUANT (02/15/17) ASSAY THYROID STIM HORMONE (03/11/14) C-REACTIVE PROTEIN (03/11/14) CARDIOVASCULAR STRESS TEST (03/22/14) CHEST X-RAY 1 VIEW FRONTAL (02/15/17) COMPLETE CBC W/AUTO DIFF WBC (02/15/17) COMPREHEN METABOLIC PANEL (02/15/17) CONTRST X-RAY UPPR GI TRACT (03/30/14) CREATINE MB FRACTION (03/11/14) DRAIN/INJ JOINT/BURSA W/O US (04/30/17) ELECTROCARDIOGRAM TRACING (02/15/17) EMERGENCY DEPT VISIT (02/15/17) GLUCOSE BLOOD TEST (03/11/14) GLYCOSYLATED HEMOGLOBIN TEST (03/11/14) HT MUSCLE IMAGE SPECT MULT (03/22/14) LIPID PANEL (03/11/14) MEASURE BLOOD OXYGEN LEVEL (03/11/14) PROTHROMBIN TIME (02/15/17) ROUTINE VENIPUNCTURE (02/15/17) THER/PROPH/DIAG INJ SC/IM (03/11/14) THROMBOPLASTIN TIME PARTIAL (02/15/17) (1) S/P total hip arthroplasty SNOMED Code(s): 450624654734 Code(s): Z96.649 - PRESENCE OF UNSPECIFIED ARTIFICIAL HIP JOINT Priority: High Current Visit: Yes Qualifiers: Laterality: right Qualified Code(s): Z96.641 - Presence of right artificial hip joint (2) Osteoarthritis SNOMED Code(s): 798868323 Code(s): M19.90 - UNSPECIFIED OSTEOARTHRITIS, UNSPECIFIED SITE Priority: High Current Visit: Yes Qualifiers: Osteoarthritis location: hip Osteoarthritis type: primary Laterality: right Qualified Code(s): M16.11 - Unilateral primary osteoarthritis, right hip (3) CAD (coronary artery disease) SNOMED Code(s): 59492331 Code(s): I25.10 - ATHSCL HEART DISEASE OF [place] CORONARY ARTERY W/O ANG PCTRS Priority: Low Current Visit: No Qualifiers: Coronary Disease-Associated Artery/Lesion type: unspecified vessel or lesion type [place] vs. transplanted heart: unspecified whether [place] or transplanted heart Associated angina: angina presence unspecified Qualified Code(s): I25.10 - Atherosclerotic heart disease of [place] coronary artery without angina pectoris (4) HLD (hyperlipidemia) SNOMED Code(s): 36848426 Code(s): E78.5 - HYPERLIPIDEMIA, UNSPECIFIED Priority: Low Current Visit : No Qualifiers: Hyperlipidemia type: unspecified Qualified Code(s): E78.5 - Hyperlipidemia , unspecified (5) HTN (hypertension) SNOMED Code(s): 19216221 Code(s): I10 - ESSENTIAL (PRIMARY) HYPERTENSION Priority: Low Current Visit: No Qualifiers: Hypertension type: unspecified Qualified Code(s): I10 - Essential (primary ) hypertension (6) Mitral valve insufficiency SNOMED Code(s): 92197793 Code(s): I34.0 - NONRHEUMATIC MITRAL (VALVE) INSUFFICIENCY Priority: Low Current Visit: No Qualifiers: Cardiac valve disease etiology: etiology unspecified Qualified Code(s): I34.0 - Nonrheumatic mitral (valve) insufficiency (7) Aortic valve insufficiency SNOMED Code(s): 73774738 Code(s): I35.1 - NONRHEUMATIC AORTIC (VALVE) INSUFFICIENCY Priority: Low Current Visit: No Qualifiers: Cardiac valve disease etiology: etiology unspecified Qualified Code(s): I35.1 - Nonrheumatic aortic (valve) insufficiency (8) Sleep apnea SNOMED Code(s): 45791945 Code(s): G47.30 - SLEEP APNEA, UNSPECIFIED Priority: Low Current Visit: Yes Qualifiers: Sleep apnea type: unspecified type Qualified Code(s): G47.30 - Sleep apnea , unspecified (9) Diverticulosis SNOMED Code(s): 77678922 Code(s): K57.90 - DVRTCLOS OF INTEST, PART UNSP, W/O PERF OR ABSCESS W/O BLEED Priority: Low Current Visit: No Qualifiers: Diverticulosis site: unspecified location Diverticulosis bleeding: diverticulosis without bleeding Qualified Code(s): K57.90 - Diverticulosis of intestine, part unspecified, without perforation or abscess without bleeding (10) GERD (gastroesophageal reflux disease) SNOMED Code(s): 674378928 Code(s): K21.9 - GASTRO-ESOPHAGEAL REFLUX DISEASE WITHOUT ESOPHAGITIS Priority: Low Current Visit: No Qualifiers: Esophagitis presence: esophagitis presence not specified Qualified Code(s) : K21.9 - Gastro-esophageal reflux disease without esophagitis (11) Type II diabetes mellitus SNOMED Code(s): 87704667 Code(s): E11.9 - TYPE 2 DIABETES MELLITUS WITHOUT COMPLICATIONS Priority: Medium Current Visit: Yes Qualifiers: Diabetes mellitus complication status: without complication Diabetes mellitus longterm insulin use: without longterm use Qualified Code(s): E11.9 - Type 2 diabetes mellitus without complications (12) Hypothyroidism SNOMED Code(s): 44819779 Code(s): E03.9 - HYPOTHYROIDISM, UNSPECIFIED Priority: Low Current Visit : No Qualifiers: Hypothyroidism type: unspecified Qualified Code(s): E03.9 - Hypothyroidism , unspecified Problem List Initiated/Reviewed/Updated: Yes My Orders Last 24 Hours: My Active Orders 01/13/18 17:05 Blood Glucose Check, Bedside [RC] QIDACANDBED Dextrose 50% in Water 50 ml IVPUSH ASDIRECTED PRN 01/13/18 17:19 CPAP Adult [RT BiPAP/CPAP] [RC] ASDIRECTED 01/13/18 17:30 Scopolamine 1 each TRDERM Q72H 01/13/18 22:00 Insulin Aspart [NovoLOG] See Protocol SUBCUT QIDACANDBED Plan: I/P: Acute: S/P right total ihp arthroplasty - post-operative day 1 -DVT prophylaxis and pain management per primary care team -PT/OT -IS/RT -Monitor oxygen saturation -Titrate oxygen as needed -Vital signs stable -Monitor labs -Pre-operative Hgb was 11.8, now 9.7 -Pre-operative A1C 6.5% -Pre-operative eGFR 53%, now 43 Osteoarthritis of right hip -Pain management per primary care team Post-operative nausea and vomiting, resolved -Comes on suddenly and resolves after emesis temporarily -2 episodes so far -Zofran given, scopolamine patch ordered Chronic (home meds): Impaired vision CAD HLD HTN Mitral valve insufficiency Aortic valve insufficiency Sleep apnea on CPAP Diverticulosis Gastritis GERD Type II DM Hypothyroidism Plan: CM for discharge planning GI prophylaxis Home medications as indicated Other orders as listed above Routine AM labs She is a full code. Her PCP is Dr. Henry at [facility] Thank you for allowing us to participate in the care of this patient!!
[2018-01-14] MEDS: Acetaminophen/oxyCODONE 325-5 MG Tab PO PRN ×2 (06:25→12:04)
[2018-01-14] MEDS: Famotidine 20 MG Tab PO SCH (06:26)
--- NOTE | 2018-01-14 07:20 | PCM.SURGPN ---
- General Info Date of Service: 01/14/18 POD#: 1 Functional Status: Reports: Pain Controlled, Tolerating Diet, Ambulating, Incentive Spirometry - Review of Systems Musculoskeletal: Reports: Other (The pt has met inpatient therapy goals.) - Patient Data Vitals - Most Recent: Last Vital Signs Temp 98.1 F 01/14/18 06:08 Pulse 87 01/14/18 06:08 Resp 18 01/14/18 06:08 BP 145/48 H 01/14/18 06:08 Pulse Ox 100 01/14/18 06:08 Weight - Most Recent: 179 lb I&O - Last 24 Hours: Intake & Output 01/13/18 01/14/18 01/14/18 22:59 06:59 14:59 Intake Total 380 306 Output Total 800 950 Balance -420 -644 Lab Results Last 24 Hrs: Laboratory Results - last 24 hr 01/13/18 01/13/18 01/14/18 Range/Units 11:03 20:45 06:03 WBC (3.98-10.04) K/mm3 RBC (3.98-5.22) M/mm3 Hgb (11.2-15.7) gm/L Hct (34.1-44.9) % MCV (79.4-94.8) fl MCH (25.6-32.2) pg MCHC (32.2-35.5) g/dl RDW Std Deviation (36.4-46.3) fL Plt Count (182-369) K/mm3 MPV (9.4-12.3) fl POC Glucose 175 H 171 H (83-110) mg/dL Blood Type O NEGATIVE Gel Antibody Screen Negative 01/14/18 Range/Units 06:30 WBC 8.47 (3.98-10.04) K/mm3 RBC 3.26 L (3.98-5.22) M/mm3 Hgb 9.7 L (11.2-15.7) gm/L Hct 29.9 L (34.1-44.9) % MCV 91.7 (79.4-94.8) fl MCH 29.8 (25.6-32.2) pg MCHC 32.4 (32.2-35.5) g/dl RDW Std Deviation 43.1 (36.4-46.3) fL Plt Count 307 (182-369) K/mm3 MPV 9.0 L (9.4-12.3) fl POC Glucose (83-110) mg/dL Blood Type Gel Antibody Screen Med Orders - Current: Current Medications Aspirin (Halfprin) 81 mg PO DAILY [facility] Bisacodyl (Dulcolax) 5 mg PO DAILY PRN PRN Reason: Constipation Cholecalciferol (Vitamin D3) 5,000 units PO DAILY [facility] Dextrose/Water (Dextrose 50% In Water) 50 ml IVPUSH ASDIRECTED PRN PRN Reason: Hypoglycemia Docusate Sodium (Colace) 100 mg PO BID [facility] Last Admin: 01/13/18 20:56 Dose: Not Given Famotidine (Pepcid) 20 mg PO Q12H [facility] Last Admin: 01/14/18 06:26 Dose: 20 mg Glipizide (Glucotrol Xl) 5 mg PO DAILY [facility] Hydrochlorothiazide (Hydrochlorothiazide) 25 mg PO DAILY [facility] Clindamycin Phosphate 900 mg/ (Sodium Chloride) 106 mls @ 100 mls/hr IV Q6H [facility] Stop: 01/14/18 18:46 Last Admin: 01/14/18 06:25 Dose: 100 mls/hr Insulin Aspart (Novolog) 0 unit SUBCUT QIDACANDBED [facility] PRN Reason: Protocol Last Admin: 01/13/18 21:08 Dose: 1 unit Isosorbide Mononitrate (Imdur) 30 mg PO DAILY [facility] Levothyroxine Sodium (Levothyroxine) 112 mcg PO ACBRK [facility] Last Admin: 01/14/18 06:25 Dose: 112 mcg Lisinopril (Prinivil) 15 mg PO DAILY [facility] Magnesium Hydroxide (Milk Of Magnesia) 30 ml PO BID PRN PRN Reason: Constipation Metformin HCl (Glucophage) 1,000 mg PO DAILY [facility] Metoclopramide HCl (Reglan) 10 mg IVPUSH Q4H PRN PRN Reason: Nausea/Vomiting Morphine Sulfate (Morphine) 2 mg IVPUSH Q2H PRN PRN Reason: Breakthrough Pain Naloxone HCl (Narcan) 0.1 mg IVPUSH Q5M PRN PRN Reason: Oversedation Ondansetron HCl (Zofran) 4 mg IVPUSH Q6H PRN PRN Reason: Nausea/Vomiting Last Admin: 01/13/18 17:03 Dose: 4 mg Oxycodone/Acetaminophen (Percocet 325-5 Mg) 1 - 2 tab PO Q4H PRN PRN Reason: Pain Last Admin: 01/14/18 06:25 Dose: 2 tab Terbinafine Hcl 250 (Mg) 0 each PO DAILY [facility] Rivaroxaban (Xarelto) 10 mg PO DAILY [facility] Scopolamine (Scopolamine) 1 each TRDERM Q72H [facility] Last Admin: 01/13/18 17:56 Dose: 1 each Senna (Senna) 8.6 mg PO BID PRN PRN Reason: Constipation Simvastatin (Zocor) 20 mg PO DAILY [facility] Sodium Chloride (Saline Flush) 10 ml FLUSH ASDIRECTED PRN PRN Reason: Keep Vein Open Discontinued Medications Aspirin (Ecotrin) 325 mg PO BID [facility] Last Admin: 01/13/18 20:56 Dose: Not Given Bupivacaine HCl (Marcaine 0.25%) Confirm Administered Dose 30 ml .ROUTE .STK- MED ONE Stop: 01/13/18 11:20 Last Admin: 01/13/18 13:24 Dose: 30 ml Clindamycin Phosphate (Cleocin) Confirm Administered Dose 900 mg .ROUTE .STK- MED ONE Stop: 01/13/18 11:20 Last Admin: 01/13/18 13:20 Dose: 900 mg Morphine Sulfate 8 mg/Epinephrine HCl 0.3 mg/Ketorolac Tromethamine 30 mg/ Sodium Chloride 27.9 ml 0 mg .XX ONETIME ONE Stop: 01/13/18 12:31 Last Admin: 01/13/18 13:23 Dose: 38.3 mg Diphenhydramine HCl (Benadryl) 25 mg IVPUSH Q6H PRN PRN Reason: Itching Stop: 01/13/18 18:00 Fentanyl (Sublimaze) Confirm Administered Dose 100 mcg .ROUTE .STK-MED ONE Stop: 01/13/18 11:42 Fentanyl (Sublimaze) 50 mcg IVPUSH Q5M PRN PRN Reason: PAIN Stop: 01/13/18 18:00 Lactated Ringer's (Ringers, Lactated) 1,000 mls @ 125 mls/hr IV ASDIRECTED [facility] Stop: 01/13/18 23:00 Last Admin: 01/13/18 11:00 Dose: 125 mls/hr Clindamycin Phosphate 900 mg/ (Sodium Chloride) 106 mls @ 100 mls/hr IV ONETIME ONE Stop: 01/13/18 13:03 Last Admin: 01/13/18 19:31 Dose: Not Given Lidocaine HCl (Xylocaine-Mpf 1%) Confirm Administered Dose 4 mls @ as directed .ROUTE .STK-MED ONE Stop: 01/13/18 11:42 Iodine (Iodine 2% Mild Tincture) Confirm Administered Dose 30 ml .ROUTE .STK- MED ONE Stop: 01/13/18 11:20 Last Admin: 01/13/18 13:15 Dose: 18 ml Ketorolac Tromethamine (Toradol) Confirm Administered Dose 30 mg .ROUTE .STK- MED ONE Stop: 01/13/18 13:58 Lidocaine/Sodium Bicarbonate (Buffered Lidocaine 1% In Ns 8.4%) 0.25 ml IDERM ONETIME PRN PRN Reason: Prior to IV Start Stop: 01/13/18 20:00 Last Admin: 01/13/18 11:00 Dose: 0.25 ml Metformin HCl (Glucophage) 500 mg PO ASDIRECTED [facility] Morphine Sulfate (Morphine) 2 mg IVPUSH Q2H PRN PRN Reason: Breakthrough Pain Morphine Sulfate (Duramorph Pf) Confirm Administered Dose 1 mg .ROUTE .STK-MED ONE Stop: 01/13/18 11:28 Non-Formulary Medication (Co Q 10.) 1 tab PO DAILY [facility] Ondansetron HCl (Zofran) Confirm Administered Dose 4 mg .ROUTE .STK-MED ONE Stop: 01/13/18 11:42 Propofol (Diprivan 20 Ml) Confirm Administered Dose 200 mg .ROUTE .STK-MED ONE Stop: 01/13/18 11:42 Propofol (Diprivan 20 Ml) Confirm Administered Dose 200 mg .ROUTE .STK-MED ONE Stop: 01/13/18 12:33 Propofol (Diprivan 20 Ml) Confirm Administered Dose 200 mg .ROUTE .STK-MED ONE Stop: 01/13/18 13:08 Tranexamic Acid (Cyklokapron) Confirm Administered Dose 1,000 mg .ROUTE .STK- MED ONE Stop: 01/13/18 11:20 Last Admin: 01/13/18 13:27 Dose: 1,000 mg Vancomycin HCl (Vancomycin) Confirm Administered Dose 1 gm .ROUTE .STK-MED ONE Stop: 01/13/18 11:20 Last Admin: 01/13/18 13:25 Dose: 1 gm - Exam Wound/Incisions: Dressing Dry and Intact General: Alert, Cooperative, No Acute Distress Lungs: Normal Respiratory Effort Extremities: Other (Right thigh soft. Damari's negative for RLE.) - Problem List Review Problem List Initiated/Reviewed/Updated: Yes - My Orders Last 24 Hours: Active Orders 24 hr Category Date Time Status Patient Status [ADT] Routine ADT 01/13/18 07:03 Active Ambulate [RC] PER UNIT ROUTINE Care 01/13/18 07:03 Active Antiembolic Devices [RC] BID Care 01/13/18 07:04 Active Blood Glucose Check, Bedside [RC] QIDACANDBED Care 01/13/18 17:05 Active CPAP Adult [RT BiPAP/CPAP] [RC] ASDIRECTED Care 01/13/18 17:19 Active Communication Order [RC] ASDIRECTED Care 01/13/18 14:01 Active Cooling Warming Measures [RC] ASDIRECTED Care 01/13/18 14:00 Inactive May Shower [RC] ASDIRECTED Care 01/13/18 07:03 Active Notify Provider Consults [RC] ASDIRECTED Care 01/13/18 07:07 Active Notify Provider [RC] ASDIRECTED Care 01/13/18 14:01 Active Oxygen Therapy [RC] PRN Care 01/13/18 07:03 Active Pulse Oximetry [RC] CONTINUOUS Care 01/13/18 14:00 Active RT Incentive Spirometry [RC] Q1HWA Care 01/13/18 07:01 Active Up to Chair [RC] ASDIRECTED Care 01/13/18 07:03 Active Vital Signs [RC] Q15M Care 01/13/18 14:00 Inactive Vital Signs [RC] Q4HR Care 01/13/18 07:03 Active Consult to Physician [CONS] Routine Cons 01/13/18 07:03 Active OT Evaluation and Treatment [CONS] Routine Cons 01/13/18 07:01 Active PT Evaluation and Treatment [CONS] Routine Cons 01/13/18 07:01 Active Regular Diet [DIET] Diet 01/13/18 Lunch Active COMPREHENSIVE METABOLIC PN,CMP [CHEM] AM Lab 01/14/18 06:30 Received Acetaminophen/oxyCODONE [Percocet 325-5 MG] Med 01/13/18 07:01 Active 1 - 2 tab PO Q4H PRN Aspirin [Halfprin] Med 01/14/18 09:00 Active 81 mg PO DAILY Bisacodyl [Dulcolax] Med 01/13/18 07:03 Active 5 mg PO DAILY PRN Cholecalciferol (Vitamin D3) [Vitamin D3] Med 01/14/18 09:00 Active 5,000 units PO DAILY Clindamycin Phosphate [Cleocin] 900 mg Med 01/13/18 18:45 Active Sodium Chloride 0.9% [Normal Saline] 100 ml IV Q6H Dextrose 50% in Water Med 01/13/18 17:05 Active 50 ml IVPUSH ASDIRECTED PRN Docusate Sodium [Colace] Med 01/13/18 09:00 Active 100 mg PO BID Famotidine [Pepcid] Med 01/13/18 07:15 Active 20 mg PO Q12H Hydrochlorothiazide Med 01/14/18 09:00 Active 25 mg PO DAILY Insulin Aspart [NovoLOG] Med 01/13/18 22:00 Active See Protocol SUBCUT QIDACANDBED Isosorbide Mononitrate [Imdur] Med 01/14/18 09:00 Active 30 mg PO DAILY Levothyroxine Med 01/14/18 06:00 Active 112 mcg PO ACBRK Lisinopril [Prinivil] Med 01/14/18 09:00 Active 15 mg PO DAILY Magnesium Hydroxide [Milk of Magnesia] Med 01/13/18 07:03 Active 30 ml PO BID PRN Metoclopramide [Reglan] Med 01/13/18 19:35 Active 10 mg IVPUSH Q4H PRN Morphine Med 01/14/18 09:03 Active 2 mg IVPUSH Q2H PRN Naloxone [Narcan] Med 01/13/18 07:03 Active 0.1 mg IVPUSH Q5M PRN Ondansetron [Zofran] Med 01/13/18 07:03 Active 4 mg IVPUSH Q6H PRN Patient's Own Medication [Ptom] Med 01/14/18 09:00 Active 0 each PO DAILY Rivaroxaban [Xarelto] Med 01/14/18 09:00 Pending 10 mg PO DAILY Scopolamine Med 01/13/18 17:30 Active 1 each TRDERM Q72H Sennosides [Senna] Med 01/13/18 07:03 Active 8.6 mg PO BID PRN Simvastatin [Zocor] Med 01/14/18 09:00 Active 20 mg PO DAILY glipiZIDE [Glucotrol XL] Med 01/14/18 09:00 Active 5 mg PO DAILY metFORMIN [Glucophage] Med 01/14/18 09:00 Pending 1,000 mg PO DAILY Hip Precautions Posterior [OM.PC] Routine Oth 01/13/18 07:01 Ordered Ice Therapy [OM.PC] Per Unit Routine Oth 01/13/18 07:04 Ordered Sequential Compression Device [OM.PC] Per Unit Routine Oth 01/13/18 07:01 Ordered Resuscitation Status Routine Resus Stat 01/13/18 07:03 Ordered Medication Orders Aspirin (Halfprin) 81 mg PO DAILY [facility] Bisacodyl (Dulcolax) 5 mg PO DAILY PRN PRN Reason: Constipation Cholecalciferol (Vitamin D3) 5,000 units PO DAILY [facility] Dextrose/Water (Dextrose 50% In Water) 50 ml IVPUSH ASDIRECTED PRN PRN Reason: Hypoglycemia Docusate Sodium (Colace) 100 mg PO BID [facility] Last Admin: 01/13/18 20:56 Dose: Not Given Admin: 01/13/18 16:39 Dose: Not Given Famotidine (Pepcid) 20 mg PO Q12H [facility] Last Admin: 01/14/18 06:26 Dose: 20 mg Admin: 01/13/18 18:18 Dose: Admin: 01/13/18 17:03 Dose: 20 mg Glipizide (Glucotrol Xl) 5 mg PO DAILY [facility] Hydrochlorothiazide (Hydrochlorothiazide) 25 mg PO DAILY [facility] Clindamycin Phosphate 900 mg/ (Sodium Chloride) 106 mls @ 100 mls/hr IV Q6H [facility] Stop: 01/14/18 18:46 Last Admin: 01/14/18 06:25 Dose: 100 mls/hr Infusion: 01/14/18 01:51 Dose: 100 mls/hr Admin: 01/14/18 00:47 Dose: 100 mls/hr Infusion: 01/13/18 18:45 Dose: 100 mls/hr Admin: 01/13/18 17:56 Dose: Not Given Admin: 01/13/18 17:41 Dose: 100 mls/hr Insulin Aspart (Novolog) 0 unit SUBCUT QIDACANDBED [facility] PRN Reason: Protocol Last Admin: 01/13/18 21:08 Dose: 1 unit Isosorbide Mononitrate (Imdur) 30 mg PO DAILY [facility] Levothyroxine Sodium (Levothyroxine) 112 mcg PO ACBRK [facility] Last Admin: 01/14/18 06:25 Dose: 112 mcg Lisinopril (Prinivil) 15 mg PO DAILY [facility] Magnesium Hydroxide (Milk Of Magnesia) 30 ml PO BID PRN PRN Reason: Constipation Metformin HCl (Glucophage) 1,000 mg PO DAILY [facility] Metoclopramide HCl (Reglan) 10 mg IVPUSH Q4H PRN PRN Reason: Nausea/Vomiting Morphine Sulfate (Morphine) 2 mg IVPUSH Q2H PRN PRN Reason: Breakthrough Pain Naloxone HCl (Narcan) 0.1 mg IVPUSH Q5M PRN PRN Reason: Oversedation Ondansetron HCl (Zofran) 4 mg IVPUSH Q6H PRN PRN Reason: Nausea/Vomiting Last Admin: 01/13/18 17:03 Dose: 4 mg Oxycodone/Acetaminophen (Percocet 325-5 Mg) 1 - 2 tab PO Q4H PRN PRN Reason: Pain Last Admin: 01/14/18 06:25 Dose: 2 tab Terbinafine Hcl 250 (Mg) 0 each PO DAILY [facility] Rivaroxaban (Xarelto) 10 mg PO DAILY [facility] Scopolamine (Scopolamine) 1 each TRDERM Q72H [facility] Last Admin: 01/13/18 17:56 Dose: 1 each Senna (Senna) 8.6 mg PO BID PRN PRN Reason: Constipation Simvastatin (Zocor) 20 mg PO DAILY [facility] Sodium Chloride (Saline Flush) 10 ml FLUSH ASDIRECTED PRN PRN Reason: Keep Vein Open - Assessment Assessment (Free Text/Narrative):: POD#1 - right ZHENG - Plan Plan (Free Text/Narrative):: 1. Xarelto, TEDs, frequent mobility. 2. Hgb 9.7. 3. Discharge to home today. 4. Further orders per Hospitalist service. The pt's case was discussed with Dr. Avery.
[2018-01-14] MEDS ORDERED: metFORMIN 500 MG Tab PO SCH ×2 (08:00→18:00)
[2018-01-14] MEDS ORDERED: CO Q PO SCH (09:00)
[2018-01-14] MEDS ORDERED: Hydrochlorothiazide 25 MG Tab PO SCH (09:00)
[2018-01-14] MEDS ORDERED: Cholecalciferol (Vitamin D3) 1,000 Unit Tab PO SCH (09:00)
[2018-01-14] MEDS ORDERED: Terbinafine Hcl 250 MG PO SCH (09:00)
[2018-01-14] MEDS ORDERED: Lisinopril 5 MG Tab PO SCH (09:00)
[2018-01-14] MEDS ORDERED: Isosorbide Mononitrate 30 MG Tab.ER PO SCH (09:00)
[2018-01-14] MEDS ORDERED: Aspirin 81 MG Tab.EC PO SCH (09:00)
[2018-01-14] MEDS ORDERED: Rivaroxaban 10 MG Tab PO SCH (09:00)
[2018-01-14] MEDS ORDERED: glipiZIDE 5 MG Tab.ER PO SCH (09:00)
[2018-01-14] MEDS ORDERED: Simvastatin 20 MG Tab PO SCH (09:00)
[2018-01-14] MEDS ORDERED: Morphine 4 MG/ML Syringe IVPUSH PRN (09:03)
[2018-01-14 09:10] VITALS: BP 126/41
[2018-01-14] MEDS: Docusate Sodium 100 MG Cap PO SCH (09:11)
[2018-01-14] MEDS: Insulin Aspart 100 Units/ML 3 ML Pen SUBCUT SCH ×2 (09:12→11:36)
--- NOTE | 2018-01-14 11:38 | PCM48HPAN ---
Post Anesthesia Note - EVALUATION WITHIN 48HRS OF ANESTHETIC Vital Signs in Normal Range: Yes Patient Participated in Evaluation: Yes Respiratory Function Stable: Yes Airway Patent: Yes Cardiovascular Function Stable: Yes Hydration Status Stable: Yes Pain Control Satisfactory: Yes Nausea and Vomiting Control Satisfactory: Yes Mental Status Recovered: Yes Pulse Rate: 88 Resp Rate: 16 Temperature: 36.6 C Blood Pressure: 126/41 - COMMENTS/OBSERVATIONS Free Text/Narrative:: Patient did complain of some nausea and itching yesterday but is doing well today. Denies headaches, back pain.
--- NOTE | 2018-01-14 13:03 | PCM.DCSUM1 ---
Discharge Summary - Hospital Course Brief History: Samaria is a 77 yo female who underwent right ZHENG with Dr. Avery on 01-13-2018 . The procedure was completed under spinal anesthesia. The pt tolerated the procedure well and was admitted to the Medical-Surgical Unit. Medical management was provided by the Hospitalist service. The pt's Hospital course was uneventful. The pt's Hgb on POD#1 was 9.7. On POD#1, Xarelto was initiated for VTE prophylaxis. SCDs and TEDs were also ordered. A Mepilex dressing was placed at the incision site at the time of surgery and remained clean and dry. The pt participated in P.T. and O.T. and progressed well. She followed the ZHENG precautions. The pt was allowed to WBAT. On POD#1, the pt was deemed appropriate to discharge to home. - Discharge Data Discharge Date: 01/14/18 Discharge Disposition: Home, Self-Care 01 Condition: Good - Patient Summary/Data Consults: Consultations 01/13/18 07:01 OT Evaluation and Treatment [CONS] Routine PT Evaluation and Treatment [CONS] Routine 01/13/18 07:03 Consult to Physician [CONS] Routine - Patient Instructions Diet: Usual Diet as Tolerated Activity: Apply Ice, As Tolerated, Elevate Extremity, Full Weight Bearing Activity, Other: Total hip arthroplasty precautions. Driving: Do Not Drive Showering/Bathing: May Shower Wound/Incision Care: Keep Operative Site/Wound Site Clean and Dry, Do NOT Change Dressing Notify Provider of: Fever, Increased Pain, Swelling and Redness, Drainage, Nausea and/or Vomiting Other/Special Instructions: Please get up and moving around every hour while awake. This helps to prevent blood clots. Please use your walker and have help as needed. Take the Xarelto blood thinner medication daily to help prevent blood clots. Do the exercises you were taught in the Hospital. Schedule for P.T. Follow the total hip arthroplasty precautions. Use the pain medication as needed. The medication may cause drowsiness and constipation. Contact your primary care provider for instructions if you are constipated. You may use a stool softener like docusate sodium or Colace 100mg twice daily and/or a laxative like Miralax daily for constipation. Try to wean from use of the pain medication as soon as able. Use the ice machine often. Elevate the limb to decrease swelling. Keep the Mepilex dressing in place until follow-up at the Clinic. Notify the Clinic if the dressing is saturated. Wear the MCKENZIE hose during the day and you may remove these at night. Eat a diet high in protein as this well help with healing. Schedule an appointment with your primary care provider for 'routine post-op care'. Please closely monitor your blood sugars. Elevated blood sugars can increase risk of infection. Contact your primary care provider with your blood sugar results. Call the Clinic with other questions or concerns - [phone]. - Discharge Plan Prescriptions/Med Rec: Acetaminophen/oxyCODONE [Percocet 325-5 MG] 1 - 2 tab PO Q6H PRN #60 tablet PRN Reason: Pain Rivaroxaban [Xarelto] 10 mg PO DAILY #40 tablet Home Medications: Home Meds Aspirin [Adult Low Dose Aspirin EC] 81 mg PO DAILY 03/11/14 [History] Co Q 10. 1 tab PO QPM 03/11/14 [History] Hydrochlorothiazide 25 mg PO DAILY 03/11/14 [History] Levothyroxine Sodium [Synthroid] 112 mcg PO DAILY 03/11/14 [History] Lisinopril 15 mg PO DAILY 03/11/14 [History] Simvastatin [Zocor] 20 mg PO QPM 03/11/14 [History] glipiZIDE [Glipizide Xl] 5 mg PO DAILY 03/11/14 [History] Cholecalciferol (Vitamin D3) [Vitamin D3] 5,000 units PO DAILY 01/13/18 [History ] Isosorbide Mononitrate [Imdur] 30 mg PO DAILY 01/13/18 [History] Terbinafine HCl [Lamisil] 250 mg PO DAILY 01/13/18 [History] metFORMIN [Glucophage] 1,000 mg PO DAILY 01/13/18 [History] metFORMIN [Glucophage] 500 mg PO QPM 01/13/18 [History] Acetaminophen/oxyCODONE [Percocet 325-5 MG] 1 - 2 tab PO Q6H PRN #60 tablet [Rx] Bisacodyl [Dulcolax] 5 mg PO DAILY PRN tablet 01/14/18 [Rx] Docusate Sodium [Colace] 100 mg PO BID cap 01/14/18 [Rx] Famotidine [Pepcid] 20 mg PO Q12H tablet 01/14/18 [Rx] Magnesium Hydroxide [Milk of Magnesia] 30 ml PO BID PRN cup 01/14/18 [Rx] Rivaroxaban [Xarelto] 10 mg PO DAILY #40 tablet 01/14/18 [Rx] Sennosides [Senna] 8.6 mg PO BID PRN tablet 01/14/18 [Rx] Referrals: Susan Henry MD [Primary Care Provider] - 01/23/18 2:00 pm (please attend your post-hospital follow up appointment with your PCP ) Ania Garland PA-C [Physician Indirect Sales Representative] - (attend your post-hospital follow up appointment as scheduled with Ania Garland on 01/22/18 at 01:30pm and 01/28/18 at 09:00AM ) - Patient Data Vitals - Most Recent: Last Vital Signs Temp 97.9 F 01/14/18 11:38 Pulse 88 01/14/18 11:38 Resp 16 01/14/18 11:38 BP 126/41 L 01/14/18 11:38 Pulse Ox 96 01/14/18 10:49 Weight - Most Recent: 179 lb I&O - Last 24 hours: Intake & Output 01/13/18 01/14/18 01/14/18 22:59 06:59 14:59 Intake Total 380 306 0 Output Total 800 950 Balance -420 -644 0 Lab Results - Last 24 hrs: Laboratory Results - last 24 hr 01/13/18 01/14/18 01/14/18 Range/Units 20:45 06:03 06:30 WBC 8.47 (3.98-10.04) K/mm3 RBC 3.26 L (3.98-5.22) M/mm3 Hgb 9.7 L (11.2-15.7) gm/L Hct 29.9 L (34.1-44.9) % MCV 91.7 (79.4-94.8) fl MCH 29.8 (25.6-32.2) pg MCHC 32.4 (32.2-35.5) g/dl RDW Std Deviation 43.1 (36.4-46.3) fL Plt Count 307 (182-369) K/mm3 MPV 9.0 L (9.4-12.3) fl Sodium (136-145) mEq/L Potassium (3.5-5.1) mEq/L Chloride (98-107) mEq/L Carbon Dioxide (21-32) mEq/L Anion Gap (5-15) BUN (7-18) mg/dL Creatinine (0.55-1.02) mg/dL Est Cr Clr Drug Dosing mL/min Estimated GFR (MDRD) (>60) mL/min BUN/Creatinine Ratio (14-18) Glucose (83-115) mg/dL POC Glucose 175 H 171 H (83-110) mg/dL Calcium (8.5-10.1) mg/dL Total Bilirubin (0.2-1.0) mg/dL AST (15-37) U/L ALT (14-59) U/L Alkaline Phosphatase (46-116) U/L Total Protein (6.4-8.2) g/dl Albumin (3.4-5.0) g/dl Globulin gm/dL Albumin/Globulin Ratio (1-2) 01/14/18 01/14/18 Range/Units 06:30 10:48 WBC (3.98-10.04) K/mm3 RBC (3.98-5.22) M/mm3 Hgb (11.2-15.7) gm/L Hct (34.1-44.9) % MCV (79.4-94.8) fl MCH (25.6-32.2) pg MCHC (32.2-35.5) g/dl RDW Std Deviation (36.4-46.3) fL Plt Count (182-369) K/mm3 MPV (9.4-12.3) fl Sodium 139 (136-145) mEq/L Potassium 4.5 (3.5-5.1) mEq/L Chloride 105 (98-107) mEq/L Carbon Dioxide 25 (21-32) mEq/L Anion Gap 13.5 (5-15) BUN 25 H (7-18) mg/dL Creatinine 1.2 H (0.55-1.02) mg/dL Est Cr Clr Drug Dosing 31.45 mL/min Estimated GFR (MDRD) 43 (>60) mL/min BUN/Creatinine Ratio 20.8 H (14-18) Glucose 168 H (83-115) mg/dL POC Glucose 199 H (83-110) mg/dL Calcium 8.5 (8.5-10.1) mg/dL Total Bilirubin 0.5 (0.2-1.0) mg/dL AST 27 (15-37) U/L ALT 29 (14-59) U/L Alkaline Phosphatase 73 (46-116) U/L Total Protein 6.4 (6.4-8.2) g/dl Albumin 3.2 L (3.4-5.0) g/dl Globulin 3.2 gm/dL Albumin/Globulin Ratio 1.0 (1-2) Med Orders - Current: Current Medications Aspirin (Halfprin) 81 mg PO DAILY [facility] Last Admin: 01/14/18 09:11 Dose: 81 mg Bisacodyl (Dulcolax) 5 mg PO DAILY PRN PRN Reason: Constipation Cholecalciferol (Vitamin D3) 5,000 units PO DAILY [facility] Last Admin: 01/14/18 09:11 Dose: 5,000 units Dextrose/Water (Dextrose 50% In Water) 50 ml IVPUSH ASDIRECTED PRN PRN Reason: Hypoglycemia Docusate Sodium (Colace) 100 mg PO BID [facility] Last Admin: 01/14/18 09:11 Dose: 100 mg Famotidine (Pepcid) 20 mg PO DAILY [facility] Glipizide (Glucotrol Xl) 5 mg PO DAILY [facility] Last Admin: 01/14/18 09:11 Dose: 5 mg Hydrochlorothiazide (Hydrochlorothiazide) 25 mg PO DAILY [facility] Last Admin: 01/14/18 09:11 Dose: 25 mg Clindamycin Phosphate 900 mg/ (Sodium Chloride) 106 mls @ 100 mls/hr IV Q6H [facility] Stop: 01/14/18 18:46 Last Admin: 01/14/18 12:04 Dose: 100 mls/hr Insulin Aspart (Novolog) 0 unit SUBCUT QIDACANDBED [facility] PRN Reason: Protocol Last Admin: 01/14/18 11:36 Dose: Not Given Isosorbide Mononitrate (Imdur) 30 mg PO DAILY [facility] Last Admin: 01/14/18 09:11 Dose: 30 mg Levothyroxine Sodium (Levothyroxine) 112 mcg PO ACBRK [facility] Last Admin: 01/14/18 06:25 Dose: 112 mcg Lisinopril (Prinivil) 15 mg PO DAILY [facility] Last Admin: 01/14/18 09:11 Dose: 15 mg Magnesium Hydroxide (Milk Of Magnesia) 30 ml PO BID PRN PRN Reason: Constipation Metformin HCl (Glucophage) 1,000 mg PO ACBRK [facility] Last Admin: 01/14/18 09:11 Dose: 1,000 mg Metformin HCl (Glucophage) 500 mg PO QPM [facility] Metoclopramide HCl (Reglan) 10 mg IVPUSH Q4H PRN PRN Reason: Nausea/Vomiting Morphine Sulfate (Morphine) 2 mg IVPUSH Q2H PRN PRN Reason: Breakthrough Pain Naloxone HCl (Narcan) 0.1 mg IVPUSH Q5M PRN PRN Reason: Oversedation Ondansetron HCl (Zofran) 4 mg IVPUSH Q6H PRN PRN Reason: Nausea/Vomiting Last Admin: 01/13/18 17:03 Dose: 4 mg Oxycodone/Acetaminophen (Percocet 325-5 Mg) 1 - 2 tab PO Q4H PRN PRN Reason: Pain Last Admin: 01/14/18 12:04 Dose: 2 tab Terbinafine Hcl 250 (Mg) 0 each PO DAILY [facility] Last Admin: 01/14/18 09:12 Dose: Not Given Rivaroxaban (Xarelto) 10 mg PO DAILY [facility] Last Admin: 01/14/18 09:11 Dose: 10 mg Scopolamine (Scopolamine) 1 each TRDERM Q72H [facility] Last Admin: 01/13/18 17:56 Dose: 1 each Senna (Senna) 8.6 mg PO BID PRN PRN Reason: Constipation Simvastatin (Zocor) 20 mg PO DAILY [facility] Last Admin: 01/14/18 09:11 Dose: 20 mg Sodium Chloride (Saline Flush) 10 ml FLUSH ASDIRECTED PRN PRN Reason: Keep Vein Open Discontinued Medications Aspirin (Ecotrin) 325 mg PO BID [facility] Last Admin: 01/13/18 20:56 Dose: Not Given Bupivacaine HCl (Marcaine 0.25%) Confirm Administered Dose 30 ml .ROUTE .STK- MED ONE Stop: 01/13/18 11:20 Last Admin: 01/13/18 13:24 Dose: 30 ml Clindamycin Phosphate (Cleocin) Confirm Administered Dose 900 mg .ROUTE .STK- MED ONE Stop: 01/13/18 11:20 Last Admin: 01/13/18 13:20 Dose: 900 mg Morphine Sulfate 8 mg/Epinephrine HCl 0.3 mg/Ketorolac Tromethamine 30 mg/ Sodium Chloride 27.9 ml 0 mg .XX ONETIME ONE Stop: 01/13/18 12:31 Last Admin: 01/13/18 13:23 Dose: 38.3 mg Diphenhydramine HCl (Benadryl) 25 mg IVPUSH Q6H PRN PRN Reason: Itching Stop: 01/13/18 18:00 Famotidine (Pepcid) 20 mg PO Q12H [facility] Last Admin: 01/14/18 06:26 Dose: 20 mg Fentanyl (Sublimaze) Confirm Administered Dose 100 mcg .ROUTE .STK-MED ONE Stop: 01/13/18 11:42 Fentanyl (Sublimaze) 50 mcg IVPUSH Q5M PRN PRN Reason: PAIN Stop: 01/13/18 18:00 Lactated Ringer's (Ringers, Lactated) 1,000 mls @ 125 mls/hr IV ASDIRECTED [facility] Stop: 01/13/18 23:00 Last Admin: 01/13/18 11:00 Dose: 125 mls/hr Clindamycin Phosphate 900 mg/ (Sodium Chloride) 106 mls @ 100 mls/hr IV ONETIME ONE Stop: 01/13/18 13:03 Last Admin: 01/13/18 19:31 Dose: Not Given Lidocaine HCl (Xylocaine-Mpf 1%) Confirm Administered Dose 4 mls @ as directed .ROUTE .STK-MED ONE Stop: 01/13/18 11:42 Iodine (Iodine 2% Mild Tincture) Confirm Administered Dose 30 ml .ROUTE .STK- MED ONE Stop: 01/13/18 11:20 Last Admin: 01/13/18 13:15 Dose: 18 ml Ketorolac Tromethamine (Toradol) Confirm Administered Dose 30 mg .ROUTE .STK- MED ONE Stop: 01/13/18 13:58 Lidocaine/Sodium Bicarbonate (Buffered Lidocaine 1% In Ns 8.4%) 0.25 ml IDERM ONETIME PRN PRN Reason: Prior to IV Start Stop: 01/13/18 20:00 Last Admin: 01/13/18 11:00 Dose: 0.25 ml Metformin HCl (Glucophage) 500 mg PO ASDIRECTED [facility] Morphine Sulfate (Morphine) 2 mg IVPUSH Q2H PRN PRN Reason: Breakthrough Pain Morphine Sulfate (Duramorph Pf) Confirm Administered Dose 1 mg .ROUTE .STK-MED ONE Stop: 01/13/18 11:28 Non-Formulary Medication (Co Q 10.) 1 tab PO DAILY [facility] Ondansetron HCl (Zofran) Confirm Administered Dose 4 mg .ROUTE .STK-MED ONE Stop: 01/13/18 11:42 Propofol (Diprivan 20 Ml) Confirm Administered Dose 200 mg .ROUTE .STK-MED ONE Stop: 01/13/18 11:42 Propofol (Diprivan 20 Ml) Confirm Administered Dose 200 mg .ROUTE .STK-MED ONE Stop: 01/13/18 12:33 Propofol (Diprivan 20 Ml) Confirm Administered Dose 200 mg .ROUTE .STK-MED ONE Stop: 01/13/18 13:08 Tranexamic Acid (Cyklokapron) Confirm Administered Dose 1,000 mg .ROUTE .STK- MED ONE Stop: 01/13/18 11:20 Last Admin: 01/13/18 13:27 Dose: 1,000 mg Vancomycin HCl (Vancomycin) Confirm Administered Dose 1 gm .ROUTE .STK-MED ONE Stop: 01/13/18 11:20 Last Admin: 01/13/18 13:25 Dose: 1 gm *Q Meaningful Use (DIS) - VTE *Q VTE Criteria *Q: - Stroke *Q Stroke Criteria *Q: - AMI *Q AMI Criteria *Q:
--- NOTE | 2018-01-14 13:05 | PCM.DCSUM1 ---
Discharge Summary - Hospital Course Brief History: Samaria is a 77 yo female who underwent right ZHENG with Dr. Avery on 01-13-2018. The procedure was completed under spinal anesthesia with sedation. The pt tolerated the procedure well and was admitted to the Medical- Surgical Unit post-operatively. The pt received sarah-operative antibiotics. Medical management was provided by the Hospitalist service. The pt's Hospital course was uneventful. She participated in P.T. and O.T. She was allowed to WBAT and used a FWW for mobility. She followed ZHENG precautions. On POD#1, Xarelto was initiated for VTE prophylaxis. The pt was deemed appropriate for discharge to home on POD#1. - Discharge Data Discharge Date: 01/14/18 Discharge Disposition: Home, Self-Care 01 Condition: Good - Patient Summary/Data Consults: Consultations 01/13/18 07:01 OT Evaluation and Treatment [CONS] Routine PT Evaluation and Treatment [CONS] Routine 01/13/18 07:03 Consult to Physician [CONS] Routine - Patient Instructions Diet: Usual Diet as Tolerated Activity: Apply Ice, As Tolerated, Elevate Extremity, Full Weight Bearing Activity, Other: Total hip arthroplasty precautions. Driving: Do Not Drive Showering/Bathing: May Shower Wound/Incision Care: Keep Operative Site/Wound Site Clean and Dry, Do NOT Change Dressing Notify Provider of: Fever, Increased Pain, Swelling and Redness, Drainage, Nausea and/or Vomiting Other/Special Instructions: Please get up and moving around every hour while awake. This helps to prevent blood clots. Please use your walker and have help as needed. Take the Xarelto blood thinner medication daily to help prevent blood clots. Do the exercises you were taught in the Hospital. Schedule for P.T. Follow the total hip arthroplasty precautions. Use the pain medication as needed. The medication may cause drowsiness and constipation. Contact your primary care provider for instructions if you are constipated. You may use a stool softener like docusate sodium or Colace 100mg twice daily and/or a laxative like Miralax daily for constipation. Try to wean from use of the pain medication as soon as able. Use the ice machine often. Elevate the limb to decrease swelling. Keep the Mepilex dressing in place until follow-up at the Clinic. Notify the Clinic if the dressing is saturated. Wear the MCKENZIE hose during the day and you may remove these at night. Eat a diet high in protein as this well help with healing. Schedule an appointment with your primary care provider for 'routine post-op care'. Please closely monitor your blood sugars. Elevated blood sugars can increase risk of infection. Contact your primary care provider with your blood sugar results. Call the Clinic with other questions or concerns - [phone]. - Discharge Plan Prescriptions/Med Rec: Acetaminophen/oxyCODONE [Percocet 325-5 MG] 1 - 2 tab PO Q6H PRN #60 tablet PRN Reason: Pain Rivaroxaban [Xarelto] 10 mg PO DAILY #40 tablet Home Medications: Home Meds Aspirin [Adult Low Dose Aspirin EC] 81 mg PO DAILY 03/11/14 [History] Co Q 10. 1 tab PO QPM 03/11/14 [History] Hydrochlorothiazide 25 mg PO DAILY 03/11/14 [History] Levothyroxine Sodium [Synthroid] 112 mcg PO DAILY 03/11/14 [History] Lisinopril 15 mg PO DAILY 03/11/14 [History] Simvastatin [Zocor] 20 mg PO QPM 03/11/14 [History] glipiZIDE [Glipizide Xl] 5 mg PO DAILY 03/11/14 [History] Cholecalciferol (Vitamin D3) [Vitamin D3] 5,000 units PO DAILY 01/13/18 [History ] Isosorbide Mononitrate [Imdur] 30 mg PO DAILY 01/13/18 [History] Terbinafine HCl [Lamisil] 250 mg PO DAILY 01/13/18 [History] metFORMIN [Glucophage] 1,000 mg PO DAILY 01/13/18 [History] metFORMIN [Glucophage] 500 mg PO QPM 01/13/18 [History] Acetaminophen/oxyCODONE [Percocet 325-5 MG] 1 - 2 tab PO Q6H PRN #60 tablet [Rx] Bisacodyl [Dulcolax] 5 mg PO DAILY PRN tablet 01/14/18 [Rx] Docusate Sodium [Colace] 100 mg PO BID cap 01/14/18 [Rx] Famotidine [Pepcid] 20 mg PO Q12H tablet 01/14/18 [Rx] Magnesium Hydroxide [Milk of Magnesia] 30 ml PO BID PRN cup 01/14/18 [Rx] Rivaroxaban [Xarelto] 10 mg PO DAILY #40 tablet 01/14/18 [Rx] Sennosides [Senna] 8.6 mg PO BID PRN tablet 01/14/18 [Rx] Referrals: Susan Henry MD [Primary Care Provider] - 01/23/18 2:00 pm (please attend your post-hospital follow up appointment with your PCP ) Ania Garland PA-C [Physician Student Loan Counselor] - (attend your post-hospital follow up appointment as scheduled with Ania Garland on 01/22/18 at 01:30pm and 01/28/18 at 09:00AM ) - Patient Data Vitals - Most Recent: Last Vital Signs Temp 97.9 F 01/14/18 11:38 Pulse 88 01/14/18 11:38 Resp 16 01/14/18 11:38 BP 126/41 L 01/14/18 11:38 Pulse Ox 96 01/14/18 10:49 Weight - Most Recent: 179 lb I&O - Last 24 hours: Intake & Output 01/13/18 01/14/18 01/14/18 22:59 06:59 14:59 Intake Total 380 306 0 Output Total 800 950 Balance -420 -644 0 Lab Results - Last 24 hrs: Laboratory Results - last 24 hr 01/13/18 01/14/18 01/14/18 Range/Units 20:45 06:03 06:30 WBC 8.47 (3.98-10.04) K/mm3 RBC 3.26 L (3.98-5.22) M/mm3 Hgb 9.7 L (11.2-15.7) gm/L Hct 29.9 L (34.1-44.9) % MCV 91.7 (79.4-94.8) fl MCH 29.8 (25.6-32.2) pg MCHC 32.4 (32.2-35.5) g/dl RDW Std Deviation 43.1 (36.4-46.3) fL Plt Count 307 (182-369) K/mm3 MPV 9.0 L (9.4-12.3) fl Sodium (136-145) mEq/L Potassium (3.5-5.1) mEq/L Chloride (98-107) mEq/L Carbon Dioxide (21-32) mEq/L Anion Gap (5-15) BUN (7-18) mg/dL Creatinine (0.55-1.02) mg/dL Est Cr Clr Drug Dosing mL/min Estimated GFR (MDRD) (>60) mL/min BUN/Creatinine Ratio (14-18) Glucose (83-115) mg/dL POC Glucose 175 H 171 H (83-110) mg/dL Calcium (8.5-10.1) mg/dL Total Bilirubin (0.2-1.0) mg/dL AST (15-37) U/L ALT (14-59) U/L Alkaline Phosphatase (46-116) U/L Total Protein (6.4-8.2) g/dl Albumin (3.4-5.0) g/dl Globulin gm/dL Albumin/Globulin Ratio (1-2) 01/14/18 01/14/18 Range/Units 06:30 10:48 WBC (3.98-10.04) K/mm3 RBC (3.98-5.22) M/mm3 Hgb (11.2-15.7) gm/L Hct (34.1-44.9) % MCV (79.4-94.8) fl MCH (25.6-32.2) pg MCHC (32.2-35.5) g/dl RDW Std Deviation (36.4-46.3) fL Plt Count (182-369) K/mm3 MPV (9.4-12.3) fl Sodium 139 (136-145) mEq/L Potassium 4.5 (3.5-5.1) mEq/L Chloride 105 (98-107) mEq/L Carbon Dioxide 25 (21-32) mEq/L Anion Gap 13.5 (5-15) BUN 25 H (7-18) mg/dL Creatinine 1.2 H (0.55-1.02) mg/dL Est Cr Clr Drug Dosing 31.45 mL/min Estimated GFR (MDRD) 43 (>60) mL/min BUN/Creatinine Ratio 20.8 H (14-18) Glucose 168 H (83-115) mg/dL POC Glucose 199 H (83-110) mg/dL Calcium 8.5 (8.5-10.1) mg/dL Total Bilirubin 0.5 (0.2-1.0) mg/dL AST 27 (15-37) U/L ALT 29 (14-59) U/L Alkaline Phosphatase 73 (46-116) U/L Total Protein 6.4 (6.4-8.2) g/dl Albumin 3.2 L (3.4-5.0) g/dl Globulin 3.2 gm/dL Albumin/Globulin Ratio 1.0 (1-2) Med Orders - Current: Current Medications Aspirin (Halfprin) 81 mg PO DAILY [facility] Last Admin: 01/14/18 09:11 Dose: 81 mg Bisacodyl (Dulcolax) 5 mg PO DAILY PRN PRN Reason: Constipation Cholecalciferol (Vitamin D3) 5,000 units PO DAILY [facility] Last Admin: 01/14/18 09:11 Dose: 5,000 units Dextrose/Water (Dextrose 50% In Water) 50 ml IVPUSH ASDIRECTED PRN PRN Reason: Hypoglycemia Docusate Sodium (Colace) 100 mg PO BID [facility] Last Admin: 01/14/18 09:11 Dose: 100 mg Famotidine (Pepcid) 20 mg PO DAILY [facility] Glipizide (Glucotrol Xl) 5 mg PO DAILY [facility] Last Admin: 01/14/18 09:11 Dose: 5 mg Hydrochlorothiazide (Hydrochlorothiazide) 25 mg PO DAILY [facility] Last Admin: 01/14/18 09:11 Dose: 25 mg Clindamycin Phosphate 900 mg/ (Sodium Chloride) 106 mls @ 100 mls/hr IV Q6H [facility] Stop: 01/14/18 18:46 Last Admin: 01/14/18 12:04 Dose: 100 mls/hr Insulin Aspart (Novolog) 0 unit SUBCUT QIDACANDBED [facility] PRN Reason: Protocol Last Admin: 01/14/18 11:36 Dose: Not Given Isosorbide Mononitrate (Imdur) 30 mg PO DAILY [facility] Last Admin: 01/14/18 09:11 Dose: 30 mg Levothyroxine Sodium (Levothyroxine) 112 mcg PO ACBRK [facility] Last Admin: 01/14/18 06:25 Dose: 112 mcg Lisinopril (Prinivil) 15 mg PO DAILY [facility] Last Admin: 01/14/18 09:11 Dose: 15 mg Magnesium Hydroxide (Milk Of Magnesia) 30 ml PO BID PRN PRN Reason: Constipation Metformin HCl (Glucophage) 1,000 mg PO ACBRK [facility] Last Admin: 01/14/18 09:11 Dose: 1,000 mg Metformin HCl (Glucophage) 500 mg PO QPM [facility] Metoclopramide HCl (Reglan) 10 mg IVPUSH Q4H PRN PRN Reason: Nausea/Vomiting Morphine Sulfate (Morphine) 2 mg IVPUSH Q2H PRN PRN Reason: Breakthrough Pain Naloxone HCl (Narcan) 0.1 mg IVPUSH Q5M PRN PRN Reason: Oversedation Ondansetron HCl (Zofran) 4 mg IVPUSH Q6H PRN PRN Reason: Nausea/Vomiting Last Admin: 01/13/18 17:03 Dose: 4 mg Oxycodone/Acetaminophen (Percocet 325-5 Mg) 1 - 2 tab PO Q4H PRN PRN Reason: Pain Last Admin: 01/14/18 12:04 Dose: 2 tab Terbinafine Hcl 250 (Mg) 0 each PO DAILY [facility] Last Admin: 01/14/18 09:12 Dose: Not Given Rivaroxaban (Xarelto) 10 mg PO DAILY [facility] Last Admin: 01/14/18 09:11 Dose: 10 mg Scopolamine (Scopolamine) 1 each TRDERM Q72H [facility] Last Admin: 01/13/18 17:56 Dose: 1 each Senna (Senna) 8.6 mg PO BID PRN PRN Reason: Constipation Simvastatin (Zocor) 20 mg PO DAILY [facility] Last Admin: 01/14/18 09:11 Dose: 20 mg Sodium Chloride (Saline Flush) 10 ml FLUSH ASDIRECTED PRN PRN Reason: Keep Vein Open Discontinued Medications Aspirin (Ecotrin) 325 mg PO BID [facility] Last Admin: 01/13/18 20:56 Dose: Not Given Bupivacaine HCl (Marcaine 0.25%) Confirm Administered Dose 30 ml .ROUTE .STK- MED ONE Stop: 01/13/18 11:20 Last Admin: 01/13/18 13:24 Dose: 30 ml Clindamycin Phosphate (Cleocin) Confirm Administered Dose 900 mg .ROUTE .STK- MED ONE Stop: 01/13/18 11:20 Last Admin: 01/13/18 13:20 Dose: 900 mg Morphine Sulfate 8 mg/Epinephrine HCl 0.3 mg/Ketorolac Tromethamine 30 mg/ Sodium Chloride 27.9 ml 0 mg .XX ONETIME ONE Stop: 01/13/18 12:31 Last Admin: 01/13/18 13:23 Dose: 38.3 mg Diphenhydramine HCl (Benadryl) 25 mg IVPUSH Q6H PRN PRN Reason: Itching Stop: 01/13/18 18:00 Famotidine (Pepcid) 20 mg PO Q12H [facility] Last Admin: 01/14/18 06:26 Dose: 20 mg Fentanyl (Sublimaze) Confirm Administered Dose 100 mcg .ROUTE .STK-MED ONE Stop: 01/13/18 11:42 Fentanyl (Sublimaze) 50 mcg IVPUSH Q5M PRN PRN Reason: PAIN Stop: 01/13/18 18:00 Lactated Ringer's (Ringers, Lactated) 1,000 mls @ 125 mls/hr IV ASDIRECTED [facility] Stop: 01/13/18 23:00 Last Admin: 01/13/18 11:00 Dose: 125 mls/hr Clindamycin Phosphate 900 mg/ (Sodium Chloride) 106 mls @ 100 mls/hr IV ONETIME ONE Stop: 01/13/18 13:03 Last Admin: 01/13/18 19:31 Dose: Not Given Lidocaine HCl (Xylocaine-Mpf 1%) Confirm Administered Dose 4 mls @ as directed .ROUTE .STK-MED ONE Stop: 01/13/18 11:42 Iodine (Iodine 2% Mild Tincture) Confirm Administered Dose 30 ml .ROUTE .STK- MED ONE Stop: 01/13/18 11:20 Last Admin: 01/13/18 13:15 Dose: 18 ml Ketorolac Tromethamine (Toradol) Confirm Administered Dose 30 mg .ROUTE .STK- MED ONE Stop: 01/13/18 13:58 Lidocaine/Sodium Bicarbonate (Buffered Lidocaine 1% In Ns 8.4%) 0.25 ml IDERM ONETIME PRN PRN Reason: Prior to IV Start Stop: 01/13/18 20:00 Last Admin: 01/13/18 11:00 Dose: 0.25 ml Metformin HCl (Glucophage) 500 mg PO ASDIRECTED [facility] Morphine Sulfate (Morphine) 2 mg IVPUSH Q2H PRN PRN Reason: Breakthrough Pain Morphine Sulfate (Duramorph Pf) Confirm Administered Dose 1 mg .ROUTE .STK-MED ONE Stop: 01/13/18 11:28 Non-Formulary Medication (Co Q 10.) 1 tab PO DAILY [facility] Ondansetron HCl (Zofran) Confirm Administered Dose 4 mg .ROUTE .STK-MED ONE Stop: 01/13/18 11:42 Propofol (Diprivan 20 Ml) Confirm Administered Dose 200 mg .ROUTE .STK-MED ONE Stop: 01/13/18 11:42 Propofol (Diprivan 20 Ml) Confirm Administered Dose 200 mg .ROUTE .STK-MED ONE Stop: 01/13/18 12:33 Propofol (Diprivan 20 Ml) Confirm Administered Dose 200 mg .ROUTE .STK-MED ONE Stop: 01/13/18 13:08 Tranexamic Acid (Cyklokapron) Confirm Administered Dose 1,000 mg .ROUTE .STK- MED ONE Stop: 01/13/18 11:20 Last Admin: 01/13/18 13:27 Dose: 1,000 mg Vancomycin HCl (Vancomycin) Confirm Administered Dose 1 gm .ROUTE .STK-MED ONE Stop: 01/13/18 11:20 Last Admin: 01/13/18 13:25 Dose: 1 gm *Q Meaningful Use (DIS) - VTE *Q VTE Criteria *Q: - Stroke *Q Stroke Criteria *Q: - AMI *Q AMI Criteria *Q:
[2018-01-15] MEDS ORDERED: Famotidine 20 MG Tab PO SCH (09:00)
--- NOTE | 2018-01-19 21:39 | PCM.OPNOTE ---
- General Post-Op/Procedure Note Date of Surgery/Procedure: 01/13/18 Operative Procedure(s): right total hip arthroplasty Pre Op Diagnosis: right hip osteoarthrosis Post-Op Diagnosis: Same Anesthesia Technique: Local, MAC, Spinal Primary Surgeon: Jasiel Avery Anesthesia Provider: Elmer Patel [employer]ence [employer] Teacher: Ania Garland EBL in mLs: 300 Complications: None Condition: Good
--- NOTE | 2018-01-19 22:28 | OR ---
DATE OF OPERATION: 01/13/2018 SURGEON: Jasiel Avery MD OPERATION PERFORMED: Right total hip arthroplasty. PREOPERATIVE DIAGNOSIS: Right hip osteoarthrosis. POSTOPERATIVE DIAGNOSIS: Right hip osteoarthrosis. ANESTHESIA: Technique, local MAC with spinal. ANESTHESIA PROVIDER: Elmer Patel CRNA. MANAGER USER EXPERIENCE: Ania Garland PA-C. ESTIMATED BLOOD LOSS: 300 mL. COMPLICATIONS: None. CONDITION: Stable. IMPLANTS: 1. Vallejo size 52 hemispherical PSL cup. 2. MDM components 28, 48 mm head. 3. Tessa 28 mm -4 ceramic head. 4. Size 5 Tessa Accolate II stem. DESCRIPTION OF PROCEDURE: The patient was identified in the preoperative holding area. Proper site was marked and identified by the surgeon. The patient was taken back to the operating theather, where after adequate anesthesia, the patient was placed in a left lateral decubitus position. Axillary wedge was placed. All bony prominences were well padded. Pegs were then placed and well padded. The patient's gluteal fold was parallel to the floor. Right hip was then sterilely prepped and draped in the usual sterile fashion. OR time-out was performed. The patient received 2 g IV Ancef. At this time, a standard posterior incision was made centered over the greater trochanter. This was taken down to the IT band and gluteal fascia, which was incised along the incisional length. Charnley retractor was then placed. The short external rotators were identified and capsulotomy was performed from the level of the piriformis down to the lesser trochanter. Hip was then dislocated. Neck cut guide was then placed. The neck cut was completed and found to be adequate. At this time, anterior and posterior acetabular retractors were placed along with inferior retractor. Remaining pulvinar and labrum were removed. Starting with a 46 reamer, I was able to ream up to a 52 which was found to be stable. At this time, a 52 mm hemispherical PSL cup was impacted into place and found to have good fixation. At this time, the 48 mm MDM shell was then impacted in place and attention was turned to the femur. A femoral elevator was placed. Box chisel was used out laterally. Starter awl was placed down the canal. Starting with 0 broach, I was able to broach up to a size 5 which was found to be rotationally and vertically stable. At this time, 127-degree neck angle was placed and trial components were placed. The patient was noted to be a bit long in leg lengths with a 0, so at this time, we did a -4 which was found to have adequate pentecostalism of leg lengths and was stable throughout range of motion. At this time, the hip was dislocated and did have some difficulty. While we were doing this, we did notice there was a small portion of the posterior and lateral rim that was fractured, but I did push and pull on the cup with no signs of loosening whatsoever. At this time, the size 5 Accolade II stem was impacted into place along with the MDM components with a 28 -4 head. At this time, the hip was then relocated, 1 L Betadine solution was irrigated through the hip along with 3 L of pulse lavage irrigation with Ancef. Periarticular injection was completed. A topical vancomycin powder along with tranexamic acid was placed. A #5 Ethibond was used for closure of the short external rotators and capsule. At this time, #2 barbed suture was used for closure of the IT band and gluteal fascia, 2-0 Vicryl was used subcutaneously, and Prineo was used for the skin. The patient tolerated the procedure well and sent to PACU in stable condition. LIA /[id number]
== END 2018-01-14 13:30 | disposition home or self-care (01) | DRG 470 ==
LOC: JD.MS 10:34
PROVIDERS: ADMIT Orthopaedic Surgery; ATTEND Orthopaedic Surgery
PROC: 0SR9039 Replacement of Right Hip Joint with Ceramic Synthetic Substitute, Cemented, Open Approach (ICD-10-PCS; principal; 2018-01-13)
DX: M16.11 Unilateral primary osteoarthritis, right hip (principal); I25.10 Atherosclerotic heart disease of native coronary artery without angina pectoris; I10 Essential (primary) hypertension; E78.00 Pure hypercholesterolemia, unspecified; E11.9 Type 2 diabetes mellitus without complications; E03.9 Hypothyroidism, unspecified; G47.33 Obstructive sleep apnea (adult) (pediatric); I34.0 Nonrheumatic mitral (valve) insufficiency; I35.1 Nonrheumatic aortic (valve) insufficiency; Z79.84 Long term (current) use of oral hypoglycemic drugs; Z79.82 Long term (current) use of aspirin; Z79.899 Other long term (current) drug therapy; Z88.0 Allergy status to penicillin; Z88.8 Allergy status to other drugs, medicaments and biological substances; Z91.048 Other nonmedicinal substance allergy status
CPT/HCPCS: 01214; 36415; 73501-26-RT; 73501-RT; 80053; 82962; 85027; 86850; 86900; 86901; 87641; 94762; 97110-GP; 97116-GP; 97162-GP; 97165-GO; 97535-GO; 99231; 99232; A9270-GY; C1776; J0171; J1815-GY; J1885; J2001; J2270; J2274; J2405; J2704; J3010; J3370; J3490; J7030; J7120

== ENCOUNTER 2018-01-17 18:28 | Emergency (ER) | payer MEDICARE, BC ==
[2018-01-17 18:53] VITALS: BP 176/75
--- NOTE | 2018-01-17 19:29 | EDM.PDOC ---
ED HPI GENERAL MEDICAL PROBLEM - General Chief Complaint: Lower Extremity Injury/Pain Stated Complaint: PT TOOK A FALL Time Seen by Provider: 01/17/18 18:32 Source of Information: Reports: Patient, Family History Limitations: Reports: No Limitations - History of Present Illness INITIAL COMMENTS - FREE TEXT/NARRATIVE: This is a 77-year-old female. She just had total hip replacement of the right hip about 1 week ago. It was Dr. Tamez who did the surgery. This evening she was at home using a walker and doesn't know how she slipped and she started to fall and she put her arms out on the counter and the walker and she didn't actually fall down or land on the floor but afterward she had increased right hip pain and also right knee pain. She comes to the ER to be certain that she is not damaged her new right hip. She denies any upper extremity injury she denies any left leg injury and she did not hit her head. Treatments REPEATER CHIEF: Reports: Other (see below) Other Treatments REPEATER CHIEF: percocet Right Hip Pain Score (Numeric/FACES): 5 - Related Data Allergies Allergy/AdvReac Type Severity Reaction Status Date / Time adhesive Allergy Rash Verified 01/13/18 11:35 atorvastatin calcium Allergy Body Aches Verified 01/13/18 11:35 [From Lipitor] cephalexin monohydrate Allergy Rash Verified 01/13/18 11:35 [From Keflex] erythromycin base Allergy Rash Verified 01/13/18 11:35 [Erythromycin Base] furazolidone Allergy Rash Verified 01/13/18 11:35 nitrofurantoin Allergy Rash Verified 01/13/18 11:35 [From Furadantin] oxytetracycline Allergy Rash Verified 01/13/18 11:35 [From Terramycin] oxytetracycline HCl Allergy Rash Verified 01/13/18 11:35 [From Terramycin] Penicillins Allergy Rash Verified 01/13/18 11:35 valdecoxib [From Bextra] Allergy Rash Verified 01/13/18 11:35 tricofuron supp Allergy Rash Uncoded 01/13/18 11:35 Home Meds: Home Meds Aspirin [Adult Low Dose Aspirin EC] 81 mg PO DAILY 03/11/14 [History] Co Q 10. 1 tab PO QPM 03/11/14 [History] Hydrochlorothiazide 25 mg PO DAILY 03/11/14 [History] Levothyroxine Sodium [Synthroid] 112 mcg PO DAILY 03/11/14 [History] Lisinopril 15 mg PO DAILY 03/11/14 [History] Simvastatin [Zocor] 20 mg PO QPM 03/11/14 [History] glipiZIDE [Glipizide Xl] 5 mg PO DAILY 03/11/14 [History] Cholecalciferol (Vitamin D3) [Vitamin D3] 5,000 units PO DAILY 01/13/18 [History ] Isosorbide Mononitrate [Imdur] 30 mg PO DAILY 01/13/18 [History] Terbinafine HCl [Lamisil] 250 mg PO DAILY 01/13/18 [History] metFORMIN [Glucophage] 1,000 mg PO DAILY 01/13/18 [History] metFORMIN [Glucophage] 500 mg PO QPM 01/13/18 [History] Acetaminophen/oxyCODONE [Percocet 325-5 MG] 1 - 2 tab PO Q6H PRN #60 tablet [Rx] Bisacodyl [Dulcolax] 5 mg PO DAILY PRN tablet 01/14/18 [Rx] Docusate Sodium [Colace] 100 mg PO BID cap 01/14/18 [Rx] Famotidine [Pepcid] 20 mg PO Q12H tablet 01/14/18 [Rx] Magnesium Hydroxide [Milk of Magnesia] 30 ml PO BID PRN cup 01/14/18 [Rx] Rivaroxaban [Xarelto] 10 mg PO DAILY #40 tablet 01/14/18 [Rx] Sennosides [Senna] 8.6 mg PO BID PRN tablet 01/14/18 [Rx] Past Medical History HEENT History: Reports: Impaired Vision Other HEENT History: Wears glasses Cardiovascular History: Reports: CAD, High Cholesterol, Hypertension, Other ( See Below) Other Cardiovascular History: Mitral and aortic valve insufficiency, edema Respiratory History: Reports: Sleep Apnea Other Respiratory History: CPAP at [facility] Gastrointestinal History: Reports: Colon Polyp, Diverticulosis, Gastritis, GERD , Hiatal Hernia Genitourinary History: Reports: None PERSONAL INJURY PARALEGAL History: Reports: Musculoskeletal History: Reports: Osteoarthritis, Other (See Below) Other Musculoskeletal History: Right hip pain, DJD, back ache, right hip trochanteric bursitis, right patella chondromalacia Neurological History: Reports: None Psychiatric History: Reports: None Endocrine/Metabolic History: Reports: Diabetes, Type II, Hypothyroidism Hematologic History: Reports: None Immunologic History: Reports: None Oncologic (Cancer) History: Reports: Basal Cell Carcinoma, Other (See Below) Other Oncologic History: skin cancer that was removed Dermatologic History: Reports: Melanoma, Other (See Below) Other Dermatologic History: Actinic keratosis - Infectious Disease History Infectious Disease History: Reports: Chicken Pox, Measles, Mumps - Past Surgical History HEENT Surgical History: Reports: Cataract Surgery Cardiovascular Surgical History: Reports: None Respiratory Surgical History: Reports: None GI Surgical History: Reports: Appendectomy, Cholecystectomy, Colonoscopy, EGD, Hernia, Inguinal, Other (See Below) Other GI Surgeries/Procedures: hemorrhoid surgery Female Surgical History: Reports: Cystoscopy, Other (See Below) Other Female Surgeries/Procedures: bladder repair Endocrine Surgical History: Reports: None Neurological Surgical History: Reports: None Musculoskeletal Surgical History: Reports: Hip Replacement Oncologic Surgical History: Reports: None Dermatological Surgical History: Reports: None Social & Family History - Family History Family Medical History: Noncontributory - Tobacco Use Smoking Status *Q: Never Smoker Second Hand Smoke Exposure: No - Caffeine Use Caffeine Use: Reports: Tea - Alcohol Use Days Per Week of Alcohol Use: 0 Number of Drinks Per Day: 0 Total Drinks Per Week: 0 - Recreational Drug Use Recreational Drug Use: No Drug Use in Last 12 Months: No Review of Systems - Review of Systems Review Of Systems: See Below Constitutional: Denies: Chills, Fever Eyes: Reports: No Symptoms Ears: Reports: No Symptoms Nose: Reports: No Symptoms Mouth/Throat: Reports: No Symptoms Respiratory: Reports: No Symptoms Cardiovascular: Reports: No Symptoms GI/Abdominal: Reports: No Symptoms Genitourinary: Reports: No Symptoms Musculoskeletal: Reports: Other (As per history of present illness) Skin: Reports: No Symptoms Neurological: Reports: No Symptoms Psychiatric: Reports: No Symptoms ED EXAM, GENERAL - Physical Exam Exam: See Below Exam Limited By: No Limitations General Appearance: Alert, WD/WN, No Apparent Distress Eye Exam: Bilateral Eye: Normal Inspection Ears: Normal External Exam Nose: Normal Inspection Throat/Mouth: Normal Inspection, Normal Lips, Normal Voice, No Airway Compromise Head: Normocephalic Neck: Supple Respiratory/Chest: No Respiratory Distress Back Exam: Other (The patient is laying in bed but denies any back injury. With palpation of the lumbar spine and thoracic spine she had no tenderness.) Extremities: Other (The right hip area still has a dressing on it there is no evidence of infection it is somewhat tender on gentle palpation but there is no drainage on the dressing noted. She is able to slightly flex that hip to put her knee at 90 though it is somewhat sore it is not excruciating. The right knee is negative posterior and anterior drawer sign and the collateral ligaments are mildly tender on the medial side, there is no obvious effusion noted. The medial and lateral joint lines do not appear to be tender except over that medial collateral ligament.) Neurological: Alert, Oriented Psychiatric: Normal Affect, Normal Mood Skin Exam: Warm, Dry Course - Vital Signs Last Recorded V/S: Last Vital Signs Temp 97 F 01/17/18 18:50 Pulse 87 01/17/18 18:50 Resp 18 01/17/18 18:50 BP 176/75 H 01/17/18 18:50 Pulse Ox 93 L 01/17/18 18:50 - Orders/Labs/Meds Orders: Active Orders 24 hr Category Date Time Status Hip Min 2V or 3V Rt [CR] Stat Exams 01/17/18 19:22 Taken Knee 3V Rt [CR] Stat Exams 01/17/18 19:23 Taken Pelvis 1V or 2V [CR] Stat Exams 01/17/18 19:22 Taken - Radiology Interpretation Free Text/Narrative:: Pelvis x-ray did not show any acute fractures. Right hip x-ray shows a well placed total hip with no femur fracture it appears to be in good placement. Right knee shows some mild arthritis but no obvious fractures. - Re-Assessments/Exams Free Text/Narrative Re-Assessment/Exam: 01/17/18 20:19 I spoke to the patient and her family regarding the x-ray results. I encouraged her to take the medication that Dr. Avery gave her after surgery for the pain. Also encouraged her to use ice on her right hip as well as on her right knee and to continue to use the walker and be very careful. She has a follow-up appointment with Dr. Avery CHIQUI on Saturday and I told her at that if the hip pain or knee pain seems to be worsening to see them on Saturday. Departure - Departure Time of Disposition: 20:20 Disposition: Home, Self-Care 01 Condition: Fair Clinical Impression: Status post right hip replacement Strain of right hip Qualifiers: Encounter type: initial encounter Qualified Code(s): S76.011A - Strain of muscle, fascia and tendon of right hip, initial encounter Right knee sprain Qualifiers: Encounter type: initial encounter Involved ligament of knee: other ligament Qualified Code(s): S83.8X1A - Sprain of other specified parts of right knee, initial encounter - Discharge Information Referrals: Susan Henry MD [Primary Care Provider] - Jasiel Avery MD [Physician] - Forms: ED Department Discharge Additional Instructions: Be very careful and usually her walker but I would encourage her to still get up and move around, take the medicine for pain it was given to you by Dr. Avery as needed, continue with ice to the right hip and also to the right knee to help with the soreness and the pain, recheck on Saturday with Dr. Avery as scheduled but if the pain seems to be worsening and see him on Saturday - My Orders Last 24 Hours: My Active Orders 01/17/18 19:22 Hip Min 2V or 3V Rt [CR] Stat Pelvis 1V or 2V [CR] Stat 01/17/18 19:23 Knee 3V Rt [CR] Stat - Assessment/Plan Last 24 Hours: My Active Orders 01/17/18 19:22 Hip Min 2V or 3V Rt [CR] Stat Pelvis 1V or 2V [CR] Stat 01/17/18 19:23 Knee 3V Rt [CR] Stat
--- NOTE | 2018-01-18 14:23 | CR ---
Pelvis: AP view of the pelvis was obtained. Comparison: Prior AP pelvis study of 01/13/18. Right hip prosthesis is seen. Components are aligned. Mild joint space narrowing is seen within the left hip. Degenerative change is seen within the visualized lower lumbar spine. Nothing acute is appreciated. Impression: 1. Findings as noted above. Nothing acute is identified on AP pelvis study. Diagnostic code #2
--- NOTE | 2018-01-18 14:23 | CR ---
Right hip: AP and frog-leg lateral views of the right hip were obtained. Comparison: Prior pelvis and right hip study of 01/13/18. Right hip prosthesis is seen. Components are aligned. Underlying bony structures are intact. Nothing acute is seen. Impression: 1. Right hip prosthesis. Nothing acute is seen on two-view right hip exam. Diagnostic code #2
--- NOTE | 2018-01-18 14:23 | CR ---
Right knee: AP, lateral and sunrise patellar views of the right knee were obtained. Comparison: Previous right knee exam of 11/17/12. Mild medial joint space narrowing is seen on prior study. This is likely not seen on current exam due to lack of weightbearing view on current study. Small calcification is noted off the inferior and medial facet most likely due to old injury. No joint effusion is seen. Nothing acute is appreciated. Impression: 1. Findings compatible with old injury off the inferior medial facet of the patella. 2. Other incidental findings as noted above. Diagnostic code #2
== END 2018-01-17 20:30 | disposition home or self-care (01) ==
LOC: JD.ED 18:28
DX: S76.011A Strain of muscle, fascia and tendon of right hip, initial encounter (principal); S83.8X1A Sprain of other specified parts of right knee, initial encounter; M17.11 Unilateral primary osteoarthritis, right knee; Z96.641 Presence of right artificial hip joint; I10 Essential (primary) hypertension; I25.10 Atherosclerotic heart disease of native coronary artery without angina pectoris; E78.00 Pure hypercholesterolemia, unspecified; G47.30 Sleep apnea, unspecified; K21.9 Gastro-esophageal reflux disease without esophagitis; E11.9 Type 2 diabetes mellitus without complications; E03.9 Hypothyroidism, unspecified; Z79.82 Long term (current) use of aspirin; Z79.84 Long term (current) use of oral hypoglycemic drugs; Z79.899 Other long term (current) drug therapy; Z88.0 Allergy status to penicillin; Z88.1 Allergy status to other antibiotic agents; Z88.8 Allergy status to other drugs, medicaments and biological substances; Z91.048 Other nonmedicinal substance allergy status; W01.0XXA Fall on same level from slipping, tripping and stumbling without subsequent striking against object, initial encounter; Y92.009 Unspecified place in unspecified non-institutional (private) residence as the place of occurrence of the external cause
CPT/HCPCS: 72170; 72170-26; 73502-26-RT; 73502-RT; 73562-26-RT; 73562-RT; 99283

== ENCOUNTER 2019-08-18 19:34 | Emergency (ER) | payer MEDICARE, BC ==
[2019-08-18 19:50] VITALS: BP 167/63; PULSE 77
[2019-08-18] MEDS ORDERED: Lidocaine 1% 10 ML MDV INJECT ONE (20:39)
[2019-08-18] MEDS ORDERED: Diphtheria,Pertussis(Acell),Tetanus Vaccine 0.5 ML Syringe IM ONE (20:39)
--- NOTE | 2019-08-18 20:49 | EDM.PDOC ---
ED HPI GENERAL MEDICAL PROBLEM - General Chief Complaint: Laceration Stated Complaint: CUT ON RIGHT LEG Time Seen by Provider: 08/18/19 20:09 Source of Information: Reports: Patient, RN Notes Reviewed History Limitations: Reports: No Limitations - History of Present Illness INITIAL COMMENTS - FREE TEXT/NARRATIVE: Patient presents to the ED for the evaluation of a laceration to her right lundberg. The patient states she was visiting a friend at an assisted living, and she ended up hitting her right lundberg against the handle of a recliner As she was at the assisted living, the nurses wrapped her leg, and told her she should come to the ER for evaluation as a thought it might need stitches. Patient's unsure of her last T gap, but thinks in the last 9 years. She states that she takes aspirin daily, she was able to walk on the leg with no difficulty, she did not take anything for pain after the injury. The patient denies any numbness or tingling, and has all range of motion distal to the injury. Right Lower Leg Pain Score (Numeric/FACES): 4 - Related Data Allergies Allergy/AdvReac Type Severity Reaction Status Date / Time adhesive Allergy Rash Verified 08/18/19 19:51 atorvastatin calcium Allergy Body Aches Verified 08/18/19 19:51 [From Lipitor] cephalexin monohydrate Allergy Rash Verified 08/18/19 19:51 [From Keflex] erythromycin base Allergy Rash Verified 08/18/19 19:51 [Erythromycin Base] furazolidone Allergy Rash Verified 08/18/19 19:51 nitrofurantoin Allergy Rash Verified 08/18/19 19:51 [From Furadantin] oxytetracycline Allergy Rash Verified 08/18/19 19:51 [From Terramycin] oxytetracycline HCl Allergy Rash Verified 08/18/19 19:51 [From Terramycin] Penicillins Allergy Rash Verified 08/18/19 19:51 valdecoxib [From Bextra] Allergy Rash Verified 08/18/19 19:51 tricofuron supp Allergy Rash Uncoded 08/18/19 19:51 Home Meds: Home Meds Aspirin [Adult Low Dose Aspirin EC] 81 mg PO DAILY 03/11/14 [History] Co Q 10. 1 tab PO QPM 03/11/14 [History] Levothyroxine Sodium [Synthroid] 112 mcg PO DAILY 03/11/14 [History] Lisinopril 15 mg PO DAILY 03/11/14 [History] Simvastatin [Zocor] 20 mg PO QPM 03/11/14 [History] hydroCHLOROthiazide [Hydrochlorothiazide] 25 mg PO DAILY 03/11/14 [History] Cholecalciferol (Vitamin D3) [Vitamin D3] 5,000 units PO DAILY 01/13/18 [History ] Isosorbide Mononitrate [Imdur] 30 mg PO DAILY 01/13/18 [History] metFORMIN [Glucophage] 1,000 mg PO DAILY 01/13/18 [History] Minoxidil 0 ml TP BID 08/18/19 [History] Multivitamin with Minerals [Multiple Vitamin] 1 tab PO DAILY 08/18/19 [History] Past Medical History HEENT History: Reports: Impaired Vision Other HEENT History: Wears glasses Cardiovascular History: Reports: CAD, High Cholesterol, Hypertension, Other ( See Below) Other Cardiovascular History: Mitral and aortic valve insufficiency, edema Respiratory History: Reports: Sleep Apnea Other Respiratory History: CPAP at [facility] Gastrointestinal History: Reports: Colon Polyp, Diverticulosis, Gastritis, GERD , Hiatal Hernia Genitourinary History: Reports: None [employer] 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: Musculoskeletal History: Reports: Osteoarthritis, Other (See Below) Other Musculoskeletal History: Right hip pain, DJD, back ache, right hip trochanteric bursitis, right patella chondromalacia Neurological History: Reports: None Psychiatric History: Reports: None Endocrine/Metabolic History: Reports: Diabetes, Type II, Hypothyroidism Hematologic History: Reports: None Immunologic History: Reports: None Oncologic (Cancer) History: Reports: Basal Cell Carcinoma, Other (See Below) Other Oncologic History: skin cancer that was removed Dermatologic History: Reports: Melanoma, Other (See Below) Other Dermatologic History: Actinic keratosis - Infectious Disease History Infectious Disease History: Reports: Chicken Pox, Measles, Mumps - Past Surgical History HEENT Surgical History: Reports: Cataract Surgery Cardiovascular Surgical History: Reports: None Respiratory Surgical History: Reports: None GI Surgical History: Reports: Appendectomy, Cholecystectomy, Colonoscopy, EGD, Hernia, Inguinal, Other (See Below) Other GI Surgeries/Procedures: hemorrhoid surgery Female Surgical History: Reports: Cystoscopy, Hysterectomy, Other (See Below) Other Female Surgeries/Procedures: bladder repair Endocrine Surgical History: Reports: None Neurological Surgical History: Reports: None Musculoskeletal Surgical History: Reports: Hip Replacement Oncologic Surgical History: Reports: None Dermatological Surgical History: Reports: None Social & Family History - Family History Family Medical History: Noncontributory - Tobacco Use Smoking Status *Q: Never Smoker - Caffeine Use Caffeine Use: Reports: Tea - Recreational Drug Use Recreational Drug Use: No ED ROS GENERAL - Review of Systems Review Of Systems: See Below Constitutional: Denies: Fever, Chills HEENT: Reports: No Symptoms Respiratory: Reports: No Symptoms Cardiovascular: Reports: No Symptoms Endocrine: Reports: No Symptoms GI/Abdominal: Reports: No Symptoms : Reports: No Symptoms Musculoskeletal: Reports: No Symptoms Skin: Reports: Bruising (R lundberg), Wound ( 3 cm curvilinear wound to R anterior lundberg) ED EXAM, SKIN/RASH Exam: See Below Exam Limited By: No Limitations General Appearance: Alert, WD/WN, No Apparent Distress Respiratory/Chest: No Respiratory Distress, Lungs Clear, Normal Breath Sounds, No Accessory Muscle Use, Chest Non-Tender Cardiovascular: Normal Peripheral Pulses, Regular Rate, Rhythm, No Murmur Peripheral Pulses: 3+: Dorsalis Pedis (L), Dorsalis Pedis (R) Extremities: Normal Inspection (with exception of wound), Normal Range of Motion , Normal Capillary Refill Neurological: Alert, Oriented, Normal Cognition, No Motor/Sensory Deficits Psychiatric: Normal Affect, Normal Mood Skin: Warm, Dry, Normal Color, No Rash, Wound/Incision (3 cm curvilinear wound to R anterior lundberg) ED SKIN PROCEDURES - Laceration/Wound Repair Right Anterior Leg Appearance: Superficial, Irregular (curvilinear), Clean Distal NVT: Neuro & Vascular Intact, No Tendon Injury Anesthetic Type: Local Local Anesthesia - Lidocaine (Xylocaine): 1% Plain Local Anesthetic Volume: 5cc Skin Prep: Chlorhexidine (Hibiciens) Saline Irrigation (cc's): 250 Exploration/Debridement/Repair: Wound Explored, In a Bloodless Field, Explored to Base, No Foreign Material Found Closed with: Sutures Lac/Wound length In cm: 3 Suture Size: 4-0 # of Sutures: 4 Suture Type: Prolene, Interrupted, Simple Sterile Dressing Applied: Nurse Tetanus Status Addressed: Yes Complications: No Course - Vital Signs Last Recorded V/S: Last Vital Signs Temp 98.4 F 08/18/19 19:48 Pulse 77 08/18/19 19:48 Resp 16 08/18/19 19:48 BP 167/63 H 08/18/19 19:48 Pulse Ox 96 08/18/19 19:48 - Orders/Labs/Meds Orders: Active Orders 24 hr Category Date Time Status Influenza Vaccine Charge [RC] .DISCHARGE Care 08/18/19 19:53 Active Vaccines to be Administered [RC] PER UNIT ROUTINE Care 08/18/19 20:40 Ordered Meds: Medications Discontinued Medications Generic Name Dose Route Start Last Admin Trade Name Aj PRN Reason Stop Dose Admin Diphtheria/Tetanus/Acell Pertussis 0.5 ml 08/18/19 20:39 08/18/19 20:50 Adacel IM 08/18/19 20:40 0.5 ml .ONCE ONE Administration Influenza Virus Vaccine 180 mcg 08/18/19 20:00 08/18/19 20:53 Fluzone High-Dose 2019-20 Syringe IM 08/18/19 20:01 180 mcg .ONCE ONE Administration Lidocaine HCl 10 ml 08/18/19 20:39 08/18/19 20:50 Xylocaine 1% INJECT 08/18/19 20:40 10 ml ONETIME ONE Administration Departure - Departure Time of Disposition: 20:48 Disposition: Home, Self-Care 01 Condition: Fair Clinical Impression: Laceration of leg Qualifiers: Encounter type: initial encounter Laterality: right Qualified Code(s): S81.811A - Laceration without foreign body, right lower leg, initial encounter - Discharge Information *PRESCRIPTION DRUG MONITORING PROGRAM REVIEWED*: No *COPY OF PRESCRIPTION DRUG MONITORING REPORT IN PATIENT GREGG: No Instructions: Stitches, Onyx, or Adhesive Wound Closure, [id number] Referrals: Susan Henry MD [Primary Care Provider] - Forms: ED Department Discharge Additional Instructions: You have been evaluated in the ED for your laceration. Sutures will need to stay in for 14 days (09/01/19) You may return to the ED or clinic for removal. Please keep this area clean and dry, you may cleanse with regular soap and water. No vigorous scrubbing. Please return to ED if your symptoms change or worsen. - My Orders Last 24 Hours: My Active Orders 08/18/19 19:53 Influenza Vaccine Charge [RC] .DISCHARGE 08/18/19 20:40 Vaccines to be Administered [RC] PER UNIT ROUTINE - Assessment/Plan Last 24 Hours: My Active Orders 08/18/19 19:53 Influenza Vaccine Charge [RC] .DISCHARGE 08/18/19 20:40 Vaccines to be Administered [RC] PER UNIT ROUTINE
== END 2019-08-18 21:35 | disposition home or self-care (01) ==
LOC: JD.ED 19:34
DX: S81.811A Laceration without foreign body, right lower leg, initial encounter (principal); I25.10 Atherosclerotic heart disease of native coronary artery without angina pectoris; E78.00 Pure hypercholesterolemia, unspecified; I10 Essential (primary) hypertension; G47.30 Sleep apnea, unspecified; E11.9 Type 2 diabetes mellitus without complications; E03.9 Hypothyroidism, unspecified; Z79.890 Hormone replacement therapy; Z79.84 Long term (current) use of oral hypoglycemic drugs; Z85.9 Personal history of malignant neoplasm, unspecified; Z85.820 Personal history of malignant melanoma of skin; Z23 Encounter for immunization; Z79.82 Long term (current) use of aspirin; Z88.1 Allergy status to other antibiotic agents; Z88.8 Allergy status to other drugs, medicaments and biological substances; Z91.048 Other nonmedicinal substance allergy status; Z88.6 Allergy status to analgesic agent; Z88.0 Allergy status to penicillin; Z79.899 Other long term (current) drug therapy; W22.09XA Striking against other stationary object, initial encounter; Y92.099 Unspecified place in other non-institutional residence as the place of occurrence of the external cause
CPT/HCPCS: 12002; 90471; 90662; 90700; 99282; G0008; J2001; 12001

== ENCOUNTER 2020-06-06 18:41 | Emergency (ER) | payer MEDICARE, BC ==
[2020-06-06] MEDS ORDERED: Lidocaine 1% 10 ML MDV INJECT ONE (19:05)
[2020-06-06 19:13] VITALS: BP 140/72; PULSE 69
--- NOTE | 2020-06-06 20:09 | EDM.PDOC ---
ED HPI GENERAL MEDICAL PROBLEM - General Chief Complaint: Laceration Stated Complaint: RIGHT LEG LAC Time Seen by Provider: 06/06/20 18:52 Source of Information: Reports: Patient History Limitations: Reports: No Limitations - History of Present Illness INITIAL COMMENTS - FREE TEXT/NARRATIVE: Patient is an 80-year-old female who presents to the emergency department with complaints of a laceration to her right lower extremity. She states she hit her leg with a car door. Last tetanus vaccination was in 2019. Right Leg Pain Score (Numeric/FACES): 5 - Related Data Allergies Allergy/AdvReac Type Severity Reaction Status Date / Time adhesive Allergy Rash Verified 06/06/20 19:05 atorvastatin calcium Allergy Body Aches Verified 06/06/20 19:05 [From Lipitor] cephalexin monohydrate Allergy Rash Verified 06/06/20 19:05 [From Keflex] erythromycin base Allergy Rash Verified 06/06/20 19:05 [Erythromycin Base] furazolidone Allergy Rash Verified 06/06/20 19:05 nitrofurantoin Allergy Rash Verified 06/06/20 19:05 [From Furadantin] oxytetracycline Allergy Rash Verified 06/06/20 19:05 [From Terramycin] oxytetracycline HCl Allergy Rash Verified 06/06/20 19:05 [From Terramycin] Penicillins Allergy Rash Verified 06/06/20 19:05 valdecoxib [From Bextra] Allergy Rash Verified 06/06/20 19:05 tricofuron supp Allergy Rash Uncoded 06/06/20 19:05 Home Meds: Home Meds Aspirin [Adult Low Dose Aspirin EC] 81 mg PO DAILY 03/11/14 [History] Co Q 10. 1 tab PO QPM 03/11/14 [History] Levothyroxine Sodium [Synthroid] 112 mcg PO DAILY 03/11/14 [History] Lisinopril 15 mg PO DAILY 03/11/14 [History] Simvastatin [Zocor] 20 mg PO QPM 03/11/14 [History] hydroCHLOROthiazide [Hydrochlorothiazide] 25 mg PO DAILY 03/11/14 [History] Cholecalciferol (Vitamin D3) [Vitamin D3] 1,000 units PO DAILY 01/13/18 [History] Isosorbide Mononitrate [Imdur] 30 mg PO DAILY 01/13/18 [History] metFORMIN [Glucophage] 500 mg PO DAILY 01/13/18 [History] Minoxidil 0 ml TP BID 08/18/19 [History] Multivitamin with Minerals [Multiple Vitamin] 1 tab PO DAILY 08/18/19 [History] Past Medical History HEENT History: Reports: Impaired Vision Other HEENT History: Wears glasses Cardiovascular History: Reports: CAD, High Cholesterol, Hypertension, Other (See Below) Other Cardiovascular History: Mitral and aortic valve insufficiency, edema Respiratory History: Reports: Sleep Apnea Other Respiratory History: CPAP at [facility] Gastrointestinal History: Reports: Colon Polyp, Diverticulosis, Gastritis, GERD, Hiatal Hernia Genitourinary History: Reports: None 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: Musculoskeletal History: Reports: Osteoarthritis, Other (See Below) Other Musculoskeletal History: Right hip pain, DJD, back ache, right hip trochanteric bursitis, right patella chondromalacia Neurological History: Reports: None Psychiatric History: Reports: None Endocrine/Metabolic History: Reports: Diabetes, Type II, Hypothyroidism Hematologic History: Reports: None Immunologic History: Reports: None Oncologic (Cancer) History: Reports: Basal Cell Carcinoma, Other (See Below) Other Oncologic History: skin cancer that was removed Dermatologic History: Reports: Melanoma, Other (See Below) Other Dermatologic History: Actinic keratosis - Infectious Disease History Infectious Disease History: Reports: Chicken Pox, Measles, Mumps - Past Surgical History HEENT Surgical History: Reports: Cataract Surgery Cardiovascular Surgical History: Reports: None Respiratory Surgical History: Reports: None GI Surgical History: Reports: Appendectomy, Cholecystectomy, Colonoscopy, EGD, Hernia, Inguinal, Other (See Below) Other GI Surgeries/Procedures: hemorrhoid surgery Female Surgical History: Reports: Cystoscopy, Hysterectomy, Other (See Below) Other Female Surgeries/Procedures: bladder repair Endocrine Surgical History: Reports: None Neurological Surgical History: Reports: None Musculoskeletal Surgical History: Reports: Hip Replacement Oncologic Surgical History: Reports: None Dermatological Surgical History: Reports: None Social & Family History - Family History Family Medical History: Noncontributory - Tobacco Use Smoking Status *Q: Never Smoker - Caffeine Use Caffeine Use: Reports: Tea - Recreational Drug Use Recreational Drug Use: No ED ROS GENERAL - Review of Systems Review Of Systems: Comprehensive ROS is negative, except as noted in HPI. ED EXAM, SKIN/RASH Exam: See Below Exam Limited By: No Limitations General Appearance: Alert, WD/WN, No Apparent Distress Respiratory/Chest: No Respiratory Distress, Lungs Clear, Normal Breath Sounds, No Accessory Muscle Use, Chest Non-Tender Cardiovascular: Normal Peripheral Pulses, Regular Rate, Rhythm, No Edema, No Gallop, No JVD, No Murmur, No Rub Extremities: Other (3 cm x 3 cm V-shaped skin tear to the lateral aspect of the right lower extremity. No active bleeding.) Neurological: Alert, Oriented, CN II-XII Intact, Normal Cognition, Normal Gait, Normal Reflexes, No Motor/Sensory Deficits Psychiatric: Normal Affect, Normal Mood ED SKIN PROCEDURES - Laceration/Wound Repair Right Lower Leg Appearance: Superficial Skin Prep: Chlorhexidine (Hibiciens), Saline Exploration/Debridement/Repair: Wound Explored Closed with: Steri-Strips Lac/Wound length In cm: 6 Tetanus Status Addressed: Yes Complications: No Progress/Comments: Patient noted to have a 3 cm 3 cm superficial skin tear to the right lower extremity. Top layer of skin was too thin to allow for suturing. Wound was closed using Steri-Strips. No active bleeding. Course - Vital Signs Last Recorded V/S: Last Vital Signs Temp 97.8 F 06/06/20 19:05 Pulse 69 06/06/20 19:05 Resp 16 06/06/20 19:05 BP 140/72 06/06/20 19:05 Pulse Ox 99 06/06/20 19:05 - Orders/Labs/Meds Meds: Medications Discontinued Medications Generic Name Dose Route Start Last Admin Trade Name Aj PRN Reason Stop Dose Admin Lidocaine HCl 10 ml 06/06/20 19:05 06/06/20 20:03 Xylocaine 1% INJECT 06/06/20 19:06 Not Given ONETIME ONE Departure - Departure Time of Disposition: 20:07 Disposition: Home, Self-Care 01 Condition: Good Clinical Impression: Skin tear - Discharge Information *PRESCRIPTION DRUG MONITORING PROGRAM REVIEWED*: No *COPY OF PRESCRIPTION DRUG MONITORING REPORT IN PATIENT GREGG: No Instructions: Skin Tear, [id number] Referrals: Susan Henry MD [Primary Care Provider] - Additional Instructions: You were seen in the emergency department today for a 3 cm x 3 cm V-shaped skin tear to your right lower leg. As we discussed, the top layer of skin is too thin to allow for suturing, therefore Steri-Strips were used. These will stay intact for the next few days and then fall off on their own. Do not peel these off as it will likely remove the newly formed tissue as well. You may shower as normal, however do not scrub the area. Allow the water to run over the area. Watch for signs of infection including increased redness, swelling, or purulent drainage. If this should occur, you should follow-up in the clinic or return to the emergency department. Return to the ER as needed. Sepsis Event Note (ED) - Evaluation Sepsis Screening Result: No Definite Risk - Focused Exam Vital Signs: Vital Signs Temp Pulse Resp BP Pulse Ox 06/06/20 19:05 97.8 F 69 16 140/72 99
== END 2020-06-06 20:13 | disposition home or self-care (01) ==
LOC: JD.ED 18:41
DX: S81.811A Laceration without foreign body, right lower leg, initial encounter (principal); I25.10 Atherosclerotic heart disease of native coronary artery without angina pectoris; E78.00 Pure hypercholesterolemia, unspecified; I10 Essential (primary) hypertension; M19.90 Unspecified osteoarthritis, unspecified site; E11.9 Type 2 diabetes mellitus without complications; E03.9 Hypothyroidism, unspecified; Z91.048 Other nonmedicinal substance allergy status; Z88.1 Allergy status to other antibiotic agents; Z88.8 Allergy status to other drugs, medicaments and biological substances; Z88.0 Allergy status to penicillin; Z79.82 Long term (current) use of aspirin; Z79.84 Long term (current) use of oral hypoglycemic drugs; Z79.899 Other long term (current) drug therapy; W22.8XXA Striking against or struck by other objects, initial encounter
CPT/HCPCS: 99282

== ENCOUNTER 2021-02-09 07:06 | Emergency (ER) | payer MEDICARE, BC ==
[2021-02-09 07:40] VITALS: BP 151/80; PULSE 68
--- NOTE | 2021-02-09 07:51 | EDM.PDOC ---
ED HPI GENERAL MEDICAL PROBLEM - General Chief Complaint: Lower Extremity Injury/Pain Stated Complaint: KNEE PAIN Time Seen by Provider: 02/09/21 07:30 Source of Information: Reports: Patient History Limitations: Reports: No Limitations - History of Present Illness INITIAL COMMENTS - FREE TEXT/NARRATIVE: The patient presents with left knee pain. She woke up at 4:30am with it. She denies any injury to her knee. She does get injections in her right knee. She has no fever or chills. She has no other symptoms such as cough, chest pain, or shortness of breath. She has no history of gout. Onset: Sudden Duration: Hour(s): Location: Reports: Lower Extremity, Left (knee) Quality: Reports: Sharp Severity: Moderate Improves with: Reports: Immobilization Worsens with: Reports: Movement Context: Denies: Trauma Associated Symptoms: Reports: No Other Symptoms Left Knee Pain Score (Numeric/FACES): 8 - Related Data Allergies Allergy/AdvReac Type Severity Reaction Status Date / Time adhesive Allergy Rash Verified 02/09/21 07:31 atorvastatin calcium Allergy Body Aches Verified 02/09/21 07:31 [From Lipitor] cephalexin monohydrate Allergy Rash Verified 02/09/21 07:31 [From Keflex] erythromycin base Allergy Rash Verified 02/09/21 07:31 [Erythromycin Base] furazolidone Allergy Rash Verified 02/09/21 07:31 nitrofurantoin Allergy Rash Verified 02/09/21 07:31 [From Furadantin] oxytetracycline Allergy Rash Verified 02/09/21 07:31 [From Terramycin] oxytetracycline HCl Allergy Rash Verified 02/09/21 07:31 [From Terramycin] Penicillins Allergy Rash Verified 02/09/21 07:31 valdecoxib [From Bextra] Allergy Rash Verified 02/09/21 07:31 tricofuron supp Allergy Rash Uncoded 02/09/21 07:31 Home Meds: Home Meds Aspirin [Adult Low Dose Aspirin EC] 81 mg PO CARLOS 03/11/14 [History] Co Q 10. 1 tab PO QPM 03/11/14 [History] Levothyroxine Sodium [Synthroid] 112 mcg PO DAILY 03/11/14 [History] Lisinopril 10 mg PO DAILY 03/11/14 [History] Simvastatin [Zocor] 20 mg PO QPM 04/24/14 [History] hydroCHLOROthiazide [Hydrochlorothiazide] 25 mg PO DAILY 03/11/14 [History] Cholecalciferol (Vitamin D3) [Vitamin D3] 1,000 units PO DAILY 01/13/18 [History] Isosorbide Mononitrate [Imdur] 30 mg PO DAILY 01/13/18 [History] metFORMIN [Glucophage] 500 mg PO DAILY 01/13/18 [History] C,E,Zinc,Copper 11/Edwbx3z/Lut [Ocuvite Adult 50 Plus Softgel] 1 cap PO DAILY 02/09/21 [History] Indomethacin 50 mg PO TID #13 capsule 02/09/21 [Rx] Past Medical History HEENT History: Reports: Impaired Vision Other HEENT History: Wears glasses Cardiovascular History: Reports: CAD, High Cholesterol, Hypertension, Other (See Below) Other Cardiovascular History: Mitral and aortic valve insufficiency, edema Respiratory History: Reports: Sleep Apnea Other Respiratory History: CPAP at [facility] Gastrointestinal History: Reports: Colon Polyp, Diverticulosis, Gastritis, GERD, Hiatal Hernia Genitourinary History: Reports: UTI, Recurrent [employer] History: Reports: Musculoskeletal History: Reports: Osteoarthritis, Other (See Below) Other Musculoskeletal History: Right hip pain, DJD, back ache, right hip trochanteric bursitis, right patella chondromalacia. Injections to R) knee. Neurological History: Reports: None Psychiatric History: Reports: None Endocrine/Metabolic History: Reports: Diabetes, Type II, Hypothyroidism Hematologic History: Reports: None Immunologic History: Reports: None Oncologic (Cancer) History: Reports: Basal Cell Carcinoma, Other (See Below) Other Oncologic History: skin cancer that was removed Dermatologic History: Reports: Melanoma, Other (See Below) Other Dermatologic History: Actinic keratosis - Infectious Disease History Infectious Disease History: Reports: Chicken Pox, Measles, Mumps - Past Surgical History HEENT Surgical History: Reports: Cataract Surgery GI Surgical History: Reports: Appendectomy, Cholecystectomy, Colonoscopy, EGD, Hernia, Inguinal, Other (See Below) Other GI Surgeries/Procedures: hemorrhoid surgery Female Surgical History: Reports: Cystoscopy, Hysterectomy, Other (See Below) Other Female Surgeries/Procedures: bladder repair Musculoskeletal Surgical History: Reports: Hip Replacement Oncologic Surgical History: Reports: Other (See Below) Other Oncologic Surgeries/Procedures: skin cancer removed Social & Family History - Family History Family Medical History: No Pertinent Family History - Tobacco Use Tobacco Use Status *Q: Never Tobacco User Second Hand Smoke Exposure: No - Caffeine Use Caffeine Use: Reports: Tea - Recreational Drug Use Recreational Drug Use: No Review of Systems - Review of Systems Review Of Systems: See Below Constitutional: Reports: No Symptoms Eyes: Reports: No Symptoms Ears: Reports: No Symptoms Nose: Reports: No Symptoms Mouth/Throat: Reports: No Symptoms Respiratory: Reports: No Symptoms Cardiovascular: Reports: No Symptoms GI/Abdominal: Reports: No Symptoms Genitourinary: Reports: No Symptoms Musculoskeletal: Reports: Other (Left knee pain) ED EXAM, GENERAL - Physical Exam Exam: See Below Exam Limited By: No Limitations General Appearance: Alert, No Apparent Distress Ears: Normal External Exam Nose: Normal Inspection Head: Atraumatic, Normocephalic Neck: Normal Inspection Respiratory/Chest: No Respiratory Distress Extremities: Other (pain upon palpation to the patella and lateral knee with no edema or warmth. Good sensation and pulses distally.) Course - Vital Signs Last Recorded V/S: Last Vital Signs Temp 98.3 F 02/09/21 07:25 Pulse 68 02/09/21 07:25 Resp 18 02/09/21 07:25 BP 151/80 H 02/09/21 07:25 Pulse Ox 97 02/09/21 07:25 - Orders/Labs/Meds Labs: Laboratory Tests 02/09/21 02/09/21 02/09/21 Range/Units 08:09 08:09 08:09 WBC 7.43 (3.98-10.04) K/mm3 RBC 4.22 (3.98-5.22) M/mm3 Hgb 11.8 D (11.2-15.7) gm/dl Hct 36.7 (34.1-44.9) % MCV 87.0 D (79.4-94.8) fl MCH 28.0 (25.6-32.2) pg MCHC 32.2 (32.2-35.5) g/dl RDW Std Deviation 40.1 (36.4-46.3) fL Plt Count 362 (182-369) K/mm3 MPV 8.4 L (9.4-12.3) fl Neut % (Auto) 64.4 (34.0-71.1) % Lymph % (Auto) 20.7 (19.3-51.7) % [place] % (Auto) 11.2 (4.7-12.5) % Eos % (Auto) 2.6 (0.7-5.8) Baso % (Auto) 0.4 (0.1-1.2) % Neut # (Auto) 4.79 (1.56-6.13) K/mm3 Lymph # (Auto) 1.54 (1.18-3.74) K/mm3 [place]ergus # (Auto) 0.83 H (0.24-0.36) K/mm3 Eos # (Auto) 0.19 (0.04-0.36) K/mm3 Baso # (Auto) 0.03 (0.01-0.08) K/mm3 ESR 19 (0-20) mm/hr Uric Acid 8.8 H (2.6-6.0) mg/dL C-Reactive Protein 0.7 (<1.0) mg/dL - Re-Assessments/Exams Free Text/Narrative Re-Assessment/Exam: 02/09/21 07:51 I ordered an x-ray of her knee and labs. 02/09/21 09:16 Her x-ray shows mild degenerative changes. Her CBC looks good. Her ESR and CRP are negative. Her uric acid was elevated at 8.8. She has had gout before and she did eat some sausage yesterday. I will treat her with some indomethacin. 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 Take the indomethacin 3 times per day for 3 days and then 2 times per day for 2 days. Take with food. You may stop if the pain goes away before you are done with the pills. Stop the pills if you get an upset stomach. Follow up with Dr Henry. Please return if you are worse. Sepsis Event Note (ED) - Evaluation Sepsis Screening Result: No Definite Risk - Focused Exam Vital Signs: Vital Signs Temp Pulse Resp BP Pulse Ox 02/09/21 07:25 98.3 F 68 18 151/80 H 97
--- NOTE | 2021-02-09 09:04 | CR ---
Left knee: 4 views of the left knee were obtained. Comparison: No prior left knee study is available. Mild to moderate narrowing of the medial joint compartment is seen. Lateral joint space is maintained. No discrete joint effusion is seen. Small spur is noted at the attachment of the quadriceps tendon to the patella. No acute fracture or dislocation is seen. Impression: 1. Medial joint space narrowing. 2. Small patellar spur. Diagnostic code #2
== END 2021-02-09 09:30 | disposition home or self-care (01) ==
LOC: JD.ED 07:06
DX: M10.462 Other secondary gout, left knee (principal); I25.10 Atherosclerotic heart disease of native coronary artery without angina pectoris; E78.00 Pure hypercholesterolemia, unspecified; I10 Essential (primary) hypertension; K21.9 Gastro-esophageal reflux disease without esophagitis; M19.90 Unspecified osteoarthritis, unspecified site; E11.9 Type 2 diabetes mellitus without complications; E03.9 Hypothyroidism, unspecified; Z90.49 Acquired absence of other specified parts of digestive tract; Z88.0 Allergy status to penicillin; Z88.8 Allergy status to other drugs, medicaments and biological substances; Z79.82 Long term (current) use of aspirin; Z79.899 Other long term (current) drug therapy; Z90.710 Acquired absence of both cervix and uterus
CPT/HCPCS: 36415; 73564-26-LT; 73564-LT; 84550; 85025; 85652; 86140; 99283; 99283-25

== ENCOUNTER 2022-07-04 16:57 | Emergency (ER) | payer MEDICARE, BC ==
[2022-07-04 17:19] VITALS: BP 188/64; PULSE 72
== END 2022-07-04 18:40 | disposition home or self-care (01) ==
LOC: JD.ED 16:57
DX: S86.911A Strain of unspecified muscle(s) and tendon(s) at lower leg level, right leg, initial encounter (principal); M70.51 Other bursitis of knee, right knee; I25.10 Atherosclerotic heart disease of native coronary artery without angina pectoris; I10 Essential (primary) hypertension; E11.9 Type 2 diabetes mellitus without complications; Z91.048 Other nonmedicinal substance allergy status; Z88.1 Allergy status to other antibiotic agents; Z88.8 Allergy status to other drugs, medicaments and biological substances; Z88.0 Allergy status to penicillin; Z79.899 Other long term (current) drug therapy; Z79.82 Long term (current) use of aspirin; Z79.84 Long term (current) use of oral hypoglycemic drugs; Z90.49 Acquired absence of other specified parts of digestive tract; Z90.710 Acquired absence of both cervix and uterus; W18.39XA Other fall on same level, initial encounter
CPT/HCPCS: 73562-26-RT; 73562-RT; 99283; 99284

== ENCOUNTER 2022-11-02 14:28 | Emergency (ER) | payer MEDICARE, BC ==
[2022-11-02 14:58] VITALS: BP 145/60; PULSE 95
[2022-11-02] MEDS ORDERED: Acetaminophen 325 MG Tab PO PRN (15:08)
[2022-11-02] MEDS ORDERED: Dextrose 5%-0.9% NaCl 1,000 ML IV SCH (15:15)
[2022-11-02 16:47] LABS: CORONAVIRUS COVID-19 NAA POSITIVE (NEGATIVE)
== END 2022-11-02 15:40 | disposition home or self-care (01) ==
LOC: JD.ED 14:28
DX: U07.1 COVID-19 (principal); E87.1 Hypo-osmolality and hyponatremia; E83.42 Hypomagnesemia; I25.119 Atherosclerotic heart disease of native coronary artery with unspecified angina pectoris; I10 Essential (primary) hypertension; E78.00 Pure hypercholesterolemia, unspecified; M19.90 Unspecified osteoarthritis, unspecified site; E11.9 Type 2 diabetes mellitus without complications; E03.9 Hypothyroidism, unspecified; Z91.048 Other nonmedicinal substance allergy status; Z88.8 Allergy status to other drugs, medicaments and biological substances; Z88.1 Allergy status to other antibiotic agents; Z88.0 Allergy status to penicillin; Z79.82 Long term (current) use of aspirin; Z79.84 Long term (current) use of oral hypoglycemic drugs; Z79.899 Other long term (current) drug therapy
CPT/HCPCS: 0241U; 36415; 71045; 80053; 83735; 83880; 84484; 85025; 85610; 85730; 86140; 93005; 96360; 96361; 99284; A9270; J7042

== ENCOUNTER 2023-04-01 09:01 | Emergency (ER) | payer MEDICARE, BC ==
[2023-04-01 09:17] VITALS: BP 157/66; PULSE 73
[2023-04-01] MEDS ORDERED: Diphtheria,Pertussis(Acell),Tetanus Vaccine 0.5 ML Syringe IM ONE (09:50)
== END 2023-04-01 10:51 | disposition home or self-care (01) ==
LOC: JD.ED 09:01
DX: S81.811A Laceration without foreign body, right lower leg, initial encounter (principal); I25.10 Atherosclerotic heart disease of native coronary artery without angina pectoris; E78.00 Pure hypercholesterolemia, unspecified; I10 Essential (primary) hypertension; E11.9 Type 2 diabetes mellitus without complications; E03.9 Hypothyroidism, unspecified; M19.90 Unspecified osteoarthritis, unspecified site; Z91.048 Other nonmedicinal substance allergy status; Z88.1 Allergy status to other antibiotic agents; Z88.8 Allergy status to other drugs, medicaments and biological substances; Z88.0 Allergy status to penicillin; Z79.82 Long term (current) use of aspirin; Z79.899 Other long term (current) drug therapy; Z23 Encounter for immunization; W18.09XA Striking against other object with subsequent fall, initial encounter
CPT/HCPCS: 90471; 90715; 99282; 99283

== ENCOUNTER 2023-10-26 19:32 | Emergency (ER) | payer MEDICARE, BC ==
[2023-10-26] MEDS ORDERED: Sodium Chloride 0.9% 10 ML Syringe FLUSH PRN (19:40)
[2023-10-26 19:42] VITALS: BP 136/92
[2023-10-26 19:47] LABS: BASOPHILS ABSOLUTE AUTO 0.1 K/mm3 (0.0-0.2); BASOPHILS PERCENT AUTO 0.6 % (0.0-1.0); EOSINOPHILS ABSOLUTE AUTO 0.2 K/mm3 (0.0-0.4); HEMATOCRIT 36.3 % (37.0-47.0); HEMOGLOBIN 11.8 gm/dl (12.0-16.0); IMMATURE GRAN ABSOLUTE AUTO 0.08 K/mm3 (0.00-0.05); LYMPHOCYTES ABSOLUTE AUTO 2.8 K/mm3 (1.0-4.8); LYMPHOCYTES PERCENT AUTO 34.9 % (24.0-44.0); MEAN CORPUSCULAR HEMOGLOBIN 27.9 pg (28.0-32.0); MEAN CORPUSCULAR HGB CONC 32.5 g/dl (32.0-36.0); MEAN CORPUSCULAR VOLUME 85.8 fl (83.0-99.0); MEAN PLATELET VOLUME 8.7 fl (9.4-12.3); MONOCYTES ABSOLUTE AUTO 0.6 K/mm3 (0.0-0.8); NEUTROPHILS ABSOLUTE AUTO 4.2 K/mm3 (1.8-7.7); NEUTROPHILS PERCENT AUTO 52.5 % (41.0-71.0); PLATELET COUNT,PLT 369 K/mm3 (150-400); RED BLOOD CELL COUNT 4.23 M/mm3 (4.10-5.30)
[2023-10-26 20:03] VITALS: PULSE 81
[2023-10-26 20:12] LABS: A/G RATIO 0.8 (1-2); ALBUMIN 3.4 g/dl (3.4-5.0); ANION GAP 12.6 (5-15); BILIRUBIN TOTAL 0.4 mg/dL (0.2-1.0); BUN/CREATININE RATIO 29.3 (14-18); CALCIUM 9.4 mg/dL (8.5-10.1); CREATININE 1.4 mg/dL (0.55-1.02); EST CRCL DRUG DOSING (CG) 24.3 mL/min; PROTEIN TOTAL,TP 7.9 g/dl (6.4-8.2)
[2023-10-26 20:13] LABS: POTASSIUM,K 4.6 mEq/L (3.5-5.1)
[2023-10-26] MEDS ORDERED: Desmopressin 20 MCG in Sodium Chloride 0.9% 50 ML IV ONE ×2 (21:48→22:45)
[2023-10-26] MEDS ORDERED: HYDROmorphone 0.5 MG/0.5 ML Syringe IVPUSH ONE (21:48)
== END 2023-10-27 07:20 | disposition home or self-care (01) ==
LOC: JD.ED 19:32
DX: S06.6X0A Traumatic subarachnoid hemorrhage without loss of consciousness, initial encounter (principal); S33.8XXA Sprain of other parts of lumbar spine and pelvis, initial encounter; S29.9XXA Unspecified injury of thorax, initial encounter; I25.10 Atherosclerotic heart disease of native coronary artery without angina pectoris; E78.00 Pure hypercholesterolemia, unspecified; I10 Essential (primary) hypertension; E11.9 Type 2 diabetes mellitus without complications; E03.9 Hypothyroidism, unspecified; Z88.1 Allergy status to other antibiotic agents; Z88.0 Allergy status to penicillin; Z88.8 Allergy status to other drugs, medicaments and biological substances; Z79.82 Long term (current) use of aspirin; Z79.899 Other long term (current) drug therapy; Z79.84 Long term (current) use of oral hypoglycemic drugs; Z90.49 Acquired absence of other specified parts of digestive tract; Z86.16 Personal history of COVID-19; Z90.710 Acquired absence of both cervix and uterus; W01.10XA Fall on same level from slipping, tripping and stumbling with subsequent striking against unspecified object, initial encounter
CPT/HCPCS: 36415; 70450; 70486; 71101; 72125; 72220; 80053; 84484; 85025; 93005; 96365; 96375; 99285; J1170; J2597; J3490; 93010; 99284